=== PATIENT | female | born 1940 | race African-American/Black ===

== ENCOUNTER 2023-07-18 12:45 | Emergency (ER) | payer OTHER ==
[2023-07-18 13:24] VITALS: RESP 18; TEMP 98.3; BMI 60.5
[2023-07-18 14:29] LABS: BASO % 0.6 % (0-2.0); HEMATOCRIT 36.8 % (32.4-45.2); HEMOGLOBIN 12.3 GM/dL (10.7-15.3); LYMPH % 24.9 % (8-40); MCH 29.5 pg (25.7-33.7); MCHC 33.3 g/dl (32.0-36.0); MEAN CELL VOLUME 88.4 fl (80-96); MEAN PLT VOLUME 9.2 fl (7.5-11.1); MONO % 5.8 % (3.8-10.2); NEUT % 66.7 % (42.8-82.8); PLATELET COUNT 320 10^3/uL (134-434); RBC 4.16 M/mm3 (3.60-5.2); RDW 15.1 % (11.6-15.6); WHITE BLOOD COUNT 7.8 K/mm3 (4.0-10.0)
[2023-07-18 14:31] LABS: VENOUS BASE EXCESS 3.5 mmol/L (-2-2); VENOUS O2 SATURATION 38.7 % (70-80); VENOUS PH 7.388 (7.310-7.410)
[2023-07-18 14:48] LABS: POTASSIUM 4.8 mmol/L (3.5-5.1)
[2023-07-18 14:50] LABS: CALCIUM 11.9 mg/dL (8.5-10.1)
[2023-07-18 14:51] LABS: BLOOD UREA NITROGEN 17.9 mg/dL (7-18)
[2023-07-18 14:53] LABS: CREATININE 0.8 mg/dL (0.55-1.3)
[2023-07-18 14:55] LABS: BILIRUBIN,TOTAL 0.4 mg/dL (0.2-1)
[2023-07-18 15:04] LABS: INR 1.35 (0.83-1.09); PROTHROMBIN TIME (PATIENT) 15.6 SEC (9.7-13.0)
[2023-07-18 15:10] LABS: EPI CELLS >36 /uL (0-25.1); HYALINE CASTS 23 /uL (0-3.1); PH,URINE 7.5 (5.0-8.0); URINE APPEARANCE TURBID; URINE BACTERIA 6123 /uL (0-1359); URINE BILIRUBIN NEGATIVE (NEGATIVE); URINE COLOR YELLOW; URINE GLUCOSE (UA) NEGATIVE (NEGATIVE); URINE KETONE NEGATIVE (NEGATIVE); URINE LEUK ESTERASE 3+ (NEGATIVE); URINE NITRITE NEGATIVE (NEGATIVE); URINE PROTEIN NEGATIVE (NEGATIVE); URINE UROBILINOGEN 0.2 mg/dL (0.2-1.0); URINE WBC 1437 /uL (0-25.8)
[2023-07-18 15:46] LABS: URINE RBC 133.2 /uL (0-23.9)
[2023-07-18 15:52] LABS: URINE CRYSTALS PRESENT /hpf
[2023-07-18 15:54] LABS: YEAST NONE SEEN (NEGATIVE)
[2023-07-18] MEDS ORDERED: CEFTRIAXONE 1 GM/50 ML BAG ONE (16:03)
[2023-07-18] MEDS: CEFTRIAXONE 1 GM in DEXTROSE 5%-WATER - 50 ML IVPB ONE (16:06)
[2023-07-18 18:15] LABS: RETICULOCYTES 1.41 % (0.5-1.5)
[2023-07-18 23:21] VITALS: BP 132/74; PULSE 76
== END 2023-07-19 00:11 ==
LOC: JER 12:45
DX: R41.82 Altered mental status, unspecified (principal); J44.9 Chronic obstructive pulmonary disease, unspecified; N39.0 Urinary tract infection, site not specified; R53.1 Weakness; Z20.822 Contact with and (suspected) exposure to COVID-19
CPT/HCPCS: 0241U-QW; 36415; 70450-TC; 71045-TC-FY; 80053; 81003; 82607; 82746; 82803; 83605; 84443; 84484; 85025; 85045; 85610; 85730; 87040; 87086; 87186; 93005; 93010; 99285-25

== ENCOUNTER 2024-01-17 19:42 | Inpatient (IN) | payer OTHER ==
[2024-01-17 20:59] LABS: BASO % 0.6 % (0-2.0); EOS % 1.5 % (0-4.5); HEMATOCRIT 27.9 % (32.4-45.2); LYMPH % 28.9 % (8-40); MCH 28.5 pg (25.7-33.7); MCHC 32.3 g/dl (32.0-36.0); MEAN CELL VOLUME 88.2 fl (80-96); MEAN PLT VOLUME 8.6 fl (7.5-11.1); MONO % 8.6 % (3.8-10.2); NEUT % 60.4 % (42.8-82.8); PLATELET COUNT 180 10^3/uL (134-434); RBC 3.16 M/mm3 (3.60-5.2); RDW 15.4 % (11.6-15.6); WHITE BLOOD COUNT 5.4 K/mm3 (4.0-10.0)
[2024-01-17 21:19] LABS: INR 1.11 (0.83-1.09); PROTHROMBIN TIME (PATIENT) 12.7 SEC (9.7-13.0)
[2024-01-17 21:21] LABS: ACTIVATED PTT 29.5 SECONDS (25.2-36.5)
[2024-01-17 21:26] LABS: POTASSIUM 5.3 mmol/L (3.5-5.1)
[2024-01-17 21:28] LABS: CALCIUM 9.3 mg/dL (8.5-10.1)
[2024-01-17 21:29] LABS: ALBUMIN 3.4 g/dl (3.4-5.0); BLOOD UREA NITROGEN 48.6 mg/dL (7-18)
[2024-01-17 21:32] LABS: CREATININE 2.4 mg/dL (0.55-1.3)
[2024-01-17 21:33] LABS: BILIRUBIN,TOTAL 0.2 mg/dL (0.2-1)
[2024-01-17 21:34] LABS: TOT PROT 7.3 g/dl (6.4-8.2)
[2024-01-17] MEDS: ACETAMINOPHEN 1000 MG/100 ML BAG IVPB ONE (21:35)
[2024-01-17] MEDS: LACTATED RINGERS SOLUTION 1,000 ML/1,000 ML INFUS.BAG IV SCH (22:11)
[2024-01-17 22:46] LABS: EPI CELLS 9 /uL (0-25.1); HYALINE CASTS 0 /uL (0-3.1); PH,URINE 6.5 (5.0-8.0); URINE APPEARANCE CLEAR; URINE BACTERIA >9,000 /uL (0-1359); URINE BILIRUBIN NEGATIVE (NEGATIVE); URINE COLOR YELLOW; URINE GLUCOSE (UA) 1+ (NEGATIVE); URINE KETONE NEGATIVE (NEGATIVE); URINE LEUK ESTERASE 1+ (NEGATIVE); URINE NITRITE NEGATIVE (NEGATIVE); URINE PROTEIN TRACE (NEGATIVE); URINE RBC 5 /uL (0-23.9); URINE UROBILINOGEN 0.2 mg/dL (0.2-1.0); URINE WBC 47 /uL (0-25.8)
[2024-01-17 22:58] LABS: POTASSIUM 5.4 mmol/L (3.5-5.1)
[2024-01-17 23:00] LABS: BLOOD UREA NITROGEN 48.4 mg/dL (7-18); CALCIUM 9.2 mg/dL (8.5-10.1)
[2024-01-17 23:04] LABS: CREATININE 2.2 mg/dL (0.55-1.3)
[2024-01-17] MEDS ORDERED: CEFTRIAXONE 1 GM/50 ML BAG ONE (23:56)
[2024-01-18 01:09] LABS: POTASSIUM 4.7 mmol/L (3.5-5.1)
[2024-01-18 01:10] LABS: CALCIUM 9.2 mg/dL (8.5-10.1)
[2024-01-18 01:11] LABS: BLOOD UREA NITROGEN 49.6 mg/dL (7-18)
[2024-01-18 01:14] LABS: CREATININE 2.3 mg/dL (0.55-1.3)
[2024-01-18 03:18] VITALS: BMI 28.0
[2024-01-18] MEDS: SODIUM CHLORIDE 1,000 ML IV SCH (05:12)
[2024-01-18] MEDS: LINEZOLID 600 MG PREMIX BAG 600 MG/300 ML BAG IVPB SCH (05:19)
[2024-01-18] MEDS: HEPARIN NA (PORCINE) 5,000 UNITS/ML 1ML VIAL SQ SCH (05:19)
[2024-01-18] MEDS: INSULIN ASPART SLIDING SCALE (NOVOLOG) 1 VIAL SQ SCH (06:22)
[2024-01-18] MEDS ORDERED: CHOLECALCIFEROL 50000 UNIT PO SCH (07:00)
[2024-01-18 07:53] LABS: BASO % 0.4 % (0-2.0); EOS % 1.8 % (0-4.5); HEMOGLOBIN 8.8 GM/dL (10.7-15.3); LYMPH % 16.5 % (8-40); MCH 29.2 pg (25.7-33.7); MCHC 32.6 g/dl (32.0-36.0); MEAN CELL VOLUME 89.3 fl (80-96); MEAN PLT VOLUME 9.3 fl (7.5-11.1); MONO % 5.1 % (3.8-10.2); NEUT % 76.2 % (42.8-82.8); PLATELET COUNT 165 10^3/uL (134-434); RBC 3.02 M/mm3 (3.60-5.2); RDW 15.2 % (11.6-15.6); WHITE BLOOD COUNT 6.1 K/mm3 (4.0-10.0)
[2024-01-18 08:10] LABS: POTASSIUM 4.4 mmol/L (3.5-5.1)
[2024-01-18 08:19] LABS: CALCIUM 9.2 mg/dL (8.5-10.1); MAGNESIUM 1.9 mg/dL (1.8-2.4)
[2024-01-18 08:20] LABS: ALBUMIN 3.2 g/dl (3.4-5.0); BILIRUBIN,TOTAL 0.3 mg/dL (0.2-1); BLOOD UREA NITROGEN 48.3 mg/dL (7-18)
[2024-01-18 08:21] LABS: CREATININE 2.2 mg/dL (0.55-1.3); PHOSPHOROUS 3.9 mg/dL (2.5-4.9)
[2024-01-18] MEDS: LACTOBACILLUS ACIDOPHILUS 1 TABLET PO SCH (09:59)
[2024-01-18] MEDS: ATORVASTATIN CA 20 MG TABLET (FP) PO SCH (09:59)
[2024-01-18] MEDS: LEVOTHYROXINE NA 25 MCG TABLET (FP) PO SCH (09:59)
[2024-01-18] MEDS: VALSARTAN 80 MG TABLET PO SCH (10:00)
[2024-01-18] MEDS: amLODIPine BESYLATE 10 MG TABLET (FP) PO SCH (10:00)
[2024-01-18] MEDS: ISOSORBIDE DINITRATE 10 MG TABLET PO SCH (10:00)
[2024-01-18] MEDS: ASCORBIC ACID 500 MG TABLET (FP) PO SCH (10:00)
[2024-01-18] MEDS: METOPROLOL TARTRATE 50 MG TABLET (FP) PO SCH (10:01)
[2024-01-18] MEDS: prednisoLONE ACETATE 1% OPHTH SUSP 5 ML BOTTLE OD SCH (10:02)
[2024-01-18] MEDS: FENOFIBRIC ACID 135 MG CAP PO SCH (10:02)
[2024-01-18] MEDS: GABAPENTIN 300 MG CAPSULE PO SCH (14:43)
[2024-01-18] MEDS: TOPIRAMATE 25 MG TABLET PO SCH (21:31)
[2024-01-18] MEDS: CEFTRIAXONE 1 GM in DEXTROSE 5%-WATER - 50 ML IVPB SCH (22:25)
[2024-01-19 09:35] LABS: BASO % 0.5 % (0-2.0); EOS % 2.3 % (0-4.5); HEMATOCRIT 26.4 % (32.4-45.2); HEMOGLOBIN 8.7 GM/dL (10.7-15.3); LYMPH % 22.5 % (8-40); MCH 29.1 pg (25.7-33.7); MCHC 32.8 g/dl (32.0-36.0); MEAN CELL VOLUME 88.8 fl (80-96); MEAN PLT VOLUME 9.3 fl (7.5-11.1); MONO % 8.3 % (3.8-10.2); NEUT % 66.4 % (42.8-82.8); PLATELET COUNT 145 10^3/uL (134-434); RBC 2.97 M/mm3 (3.60-5.2); RDW 14.8 % (11.6-15.6); WHITE BLOOD COUNT 5.1 K/mm3 (4.0-10.0)
[2024-01-19 09:51] LABS: POTASSIUM 4.5 mmol/L (3.5-5.1)
[2024-01-19 09:56] LABS: BLOOD UREA NITROGEN 44.4 mg/dL (7-18)
[2024-01-19 09:57] LABS: CALCIUM 9.5 mg/dL (8.5-10.1)
[2024-01-19 10:00] LABS: CREATININE 2.2 mg/dL (0.55-1.3)
[2024-01-19] MEDS ORDERED: MAGNESIUM HYDROX 2400MG/30ML ORAL SUSPENSION 30 ML CUP PO ONE (10:00)
[2024-01-19] MEDS: MAGNESIUM HYDROX 2400MG/30ML ORAL SUSPENSION 30 ML CUP PO ONE (14:53)
[2024-01-19] MEDS: MEROPENEM 500 MG in DEXTROSE 5%-WATER 100 ML IVPB SCH (18:05)
[2024-01-20 08:20] LABS: BASO % 0.3 % (0-2.0); EOS % 1.9 % (0-4.5); HEMATOCRIT 26.2 % (32.4-45.2); HEMOGLOBIN 8.5 GM/dL (10.7-15.3); LYMPH % 25.8 % (8-40); MCH 28.7 pg (25.7-33.7); MCHC 32.2 g/dl (32.0-36.0); MEAN PLT VOLUME 9.9 fl (7.5-11.1); PLATELET COUNT 152 10^3/uL (134-434); RBC 2.95 M/mm3 (3.60-5.2); RDW 15.6 % (11.6-15.6); WHITE BLOOD COUNT 6.7 K/mm3 (4.0-10.0)
[2024-01-20 08:24] LABS: POTASSIUM 5.4 mmol/L (3.5-5.1)
[2024-01-20 08:27] LABS: CALCIUM 9.7 mg/dL (8.5-10.1)
[2024-01-20 08:28] LABS: BLOOD UREA NITROGEN 48.6 mg/dL (7-18)
[2024-01-20 08:32] LABS: CREATININE 2.5 mg/dL (0.55-1.3)
[2024-01-20] MEDS: LINEZOLID 600 MG PREMIX BAG 600 MG/300 ML BAG IVPB SCH (08:38)
[2024-01-20 19:55] VITALS: BP 130/61; PULSE 80; RESP 20; TEMP 97.2
== END 2024-01-20 19:57 | DRG 690 ==
LOC: JER 19:42 → JERBED 21:56 → J4S 01-18 02:42 → OBSVTOIN 01-20 10:26
PROVIDERS: ADMIT Internal Medicine; ATTEND Nurse Practitioner
DX: N39.0 Urinary tract infection, site not specified (principal); N17.9 Acute kidney failure, unspecified; B96.20 Unspecified Escherichia coli [E. coli] as the cause of diseases classified elsewhere; E78.5 Hyperlipidemia, unspecified; D63.1 Anemia in chronic kidney disease; E11.22 Type 2 diabetes mellitus with diabetic chronic kidney disease; I12.9 Hypertensive chronic kidney disease with stage 1 through stage 4 chronic kidney disease, or unspecified chronic kidney disease; N18.9 Chronic kidney disease, unspecified; E87.5 Hyperkalemia; E03.9 Hypothyroidism, unspecified; E11.65 Type 2 diabetes mellitus with hyperglycemia; H54.40 Blindness, one eye, unspecified eye; H40.9 Unspecified glaucoma; R55 Syncope and collapse; S70.01XA Contusion of right hip, initial encounter; R29.6 Repeated falls; W18.30XA Fall on same level, unspecified, initial encounter; Y92.122 Bedroom in nursing home as the place of occurrence of the external cause; Y99.9 Unspecified external cause status
CPT/HCPCS: 0241U-QW; 36415; 70450-TC; 71045-TC-FY; 72125-TC; 73521-TC-FY; 76775-TC; 80048; 80053; 81003; 82550; 82570; 82607; 82728; 82746; 82962; 83036; 83540; 83550; 83735; 84100; 84156; 84466; 84484; 85025; 85045; 85610; 85730; 87086; 87186; 93005; 93010; 95816; 97116-GP; 97161-GP; 99285-25; G0378; J1644

== ENCOUNTER 2024-02-08 15:08 | Inpatient (IN) | payer OTHER ==
[2024-02-08 15:31] VITALS: BMI 27.3
[2024-02-08] MEDS: SODIUM CHLORIDE 0.9% 1000 ML INFUS.BAG IV STA (16:19)
[2024-02-08] MEDS ORDERED: PIPERACILLIN/TAZOB 4.5 GM 4.5 GM/100 ML BAG IVPB ONE (16:51)
[2024-02-08] MEDS: PIPERACILLIN/TAZOB 4.5 GM 4.5 GM in DEXTROSE 5%-WATER 100 ML IVPB ONE (16:54)
[2024-02-08 16:57] LABS: BASO % 0.2 % (0-2.0); HEMATOCRIT 26.2 % (32.4-45.2); HEMOGLOBIN 8.5 GM/dL (10.7-15.3); LYMPH % 4.4 % (8-40); MCH 28.6 pg (25.7-33.7); MCHC 32.5 g/dl (32.0-36.0); MEAN CELL VOLUME 87.9 fl (80-96); MEAN PLT VOLUME 9.5 fl (7.5-11.1); MONO % 7.6 % (3.8-10.2); NEUT % 87.8 % (42.8-82.8); PLATELET COUNT 166 10^3/uL (134-434); RBC 2.97 M/mm3 (3.60-5.2); RDW 14.8 % (11.6-15.6); WHITE BLOOD COUNT 10.4 K/mm3 (4.0-10.0)
[2024-02-08 17:02] LABS: INR 1.41 (0.83-1.09); PROTHROMBIN TIME (PATIENT) 16.1 SEC (9.7-13.0)
[2024-02-08 17:05] LABS: EPI CELLS 17 /uL (0-25.1); HYALINE CASTS 2 /uL (0-3.1); PH,URINE 5.5 (5.0-8.0); URINE APPEARANCE CLOUDY; URINE BACTERIA 6151 /uL (0-1359); URINE BILIRUBIN NEGATIVE (NEGATIVE); URINE COLOR YELLOW; URINE GLUCOSE (UA) 3+ (NEGATIVE); URINE KETONE TRACE (NEGATIVE); URINE LEUK ESTERASE 2+ (NEGATIVE); URINE NITRITE NEGATIVE (NEGATIVE); URINE PROTEIN 2+ (NEGATIVE); URINE RBC 17 /uL (0-23.9); URINE UROBILINOGEN 0.2 mg/dL (0.2-1.0); URINE WBC 889 /uL (0-25.8)
[2024-02-08 17:08] LABS: VENOUS PH 7.333 (7.310-7.410)
[2024-02-08 17:11] LABS: CHLORIDE 113 mmol/L (98-107); POTASSIUM 4.3 mmol/L (3.5-5.1); SODIUM 138 mmol/L (136-145)
[2024-02-08 17:15] LABS: CALCIUM 9.5 mg/dL (8.5-10.1)
[2024-02-08 17:16] LABS: ALBUMIN 2.5 g/dl (3.4-5.0); ANION GAP 9 mmol/L (4-13); BLOOD UREA NITROGEN 50.4 mg/dL (7-18); CO2 17 mmol/L (21-32); MAGNESIUM 1.7 mg/dL (1.8-2.4)
[2024-02-08 17:19] LABS: CREATININE 3.4 mg/dL (0.55-1.3); SGOT/AST 23 U/L (15-37); SGPT/ALT 16 U/L (13-61)
[2024-02-08 17:20] LABS: BILIRUBIN,TOTAL 0.5 mg/dL (0.2-1)
[2024-02-08 17:21] LABS: TOT PROT 6.6 g/dl (6.4-8.2)
[2024-02-08 17:22] LABS: ALK PHOS 67 U/L (45-117)
[2024-02-08 17:34] LABS: GLUCOSE,RANDOM 598 mg/dL (74-106)
[2024-02-08] MEDS ORDERED: VANCOMYCIN/WATER 1250 MG 1,250 MG/250 ML BAG IVPB ONE (17:41)
[2024-02-08] MEDS: VANCOMYCIN/WATER 1250 MG 1,250 MG/250 ML BAG IVPB ONE (17:42)
[2024-02-08 18:20] LABS: HIV INTERPRETATION NEGATIVE (NEGATIVE)
[2024-02-08] MEDS: INSULIN REGULAR HUMAN 100 UNITS/ML *VIAL IVPUSH ONE (18:46)
[2024-02-08] MEDS ORDERED: MAGNESIUM 1GM/D5W - 1 GM/100 ML IVPB IVPB ONE (18:49)
[2024-02-08] MEDS ORDERED: MEROPENEM 1 GM VIAL (RESTRICTED TO ID) IVPB ONE (18:49)
[2024-02-08] MEDS: MAGNESIUM 1GM/D5W - 1 GM/100 ML IVPB IVPB ONE (18:53)
[2024-02-08] MEDS: MEROPENEM 1 GM in DEXTROSE 5%-WATER 100 ML IVPB SCH (19:28)
[2024-02-08] MEDS ORDERED: INSULIN ASPART SLIDING SCALE (NOVOLOG) 1 VIAL SQ ONE ×2 (19:50→19:52)
[2024-02-08] MEDS: INSULIN ASPART SLIDING SCALE (NOVOLOG) 1 VIAL SQ SCH (19:55)
[2024-02-08] MEDS: LACTATED RINGERS SOLUTION 1,000 ML/1,000 ML INFUS.BAG IV SCH ×2 (20:08→20:11)
[2024-02-08] MEDS: METOPROLOL TARTRATE 50 MG TABLET (FP) PO SCH (21:39)
[2024-02-08] MEDS ORDERED: HEPARIN NA (PORCINE) 5,000 UNITS/ML 1ML VIAL ONE (22:03)
[2024-02-08] MEDS ORDERED: GABAPENTIN 300 MG CAPSULE ONE (22:03)
[2024-02-08] MEDS ORDERED: TOPIRAMATE 25 MG TABLET ONE (22:03)
[2024-02-08] MEDS: GABAPENTIN 300 MG CAPSULE PO SCH (22:36)
[2024-02-08] MEDS: HEPARIN NA (PORCINE) 5,000 UNITS/ML 1ML VIAL SQ SCH (22:36)
[2024-02-08] MEDS: TOPIRAMATE 25 MG TABLET PO SCH (22:37)
[2024-02-08] MEDS: LACTOBACILLUS ACIDOPHILUS 1 TABLET PO SCH (23:25)
[2024-02-09] MEDS ORDERED: ACETAMINOPHEN INJECTION 100 ML ONE ×2 (00:33→05:46)
[2024-02-09] MEDS: ACETAMINOPHEN 1000 MG/100 ML BAG IVPB ONE ×2 (00:38→05:55)
[2024-02-09] MEDS ORDERED: MEROPENEM 1 GM VIAL (RESTRICTED TO ID) IVPB ONE ×3 (01:57→17:55)
[2024-02-09] MEDS ORDERED: MEROPENEM 1 GM in DEXTROSE 5%-WATER 100 ML IVPB SCH ×2 (02:00→18:20)
[2024-02-09] MEDS ORDERED: GABAPENTIN 300 MG CAPSULE ONE ×3 (05:57→22:50)
[2024-02-09] MEDS ORDERED: METOPROLOL TARTRATE 50 MG TABLET (FP) ONE (09:24)
[2024-02-09] MEDS ORDERED: LEVOTHYROXINE NA 25 MCG TABLET (FP) ONE (09:24)
[2024-02-09] MEDS ORDERED: HEPARIN NA (PORCINE) 5,000 UNITS/ML 1ML VIAL ONE ×2 (09:25→22:50)
[2024-02-09] MEDS: LEVOTHYROXINE NA 25 MCG TABLET (FP) PO SCH (09:40)
[2024-02-09] MEDS ORDERED: VALSARTAN 80 MG TABLET PO SCH (10:00)
[2024-02-09] MEDS ORDERED: amLODIPine BESYLATE 10 MG TABLET (FP) PO SCH (10:00)
[2024-02-09 10:56] LABS: CHLORIDE 112 mmol/L (98-107); POTASSIUM 4.2 mmol/L (3.5-5.1); SODIUM 139 mmol/L (136-145)
[2024-02-09 10:59] LABS: ANION GAP 11 mmol/L (4-13); BLOOD UREA NITROGEN 49.3 mg/dL (7-18); CALCIUM 9.7 mg/dL (8.5-10.1); CO2 15 mmol/L (21-32)
[2024-02-09 11:00] LABS: GLUCOSE,RANDOM 419 mg/dL (74-106)
[2024-02-09 11:02] LABS: CREATININE 2.8 mg/dL (0.55-1.3)
[2024-02-09 11:08] LABS: BASO % 0.3 % (0-2.0); HEMATOCRIT 30.6 % (32.4-45.2); LYMPH % 5.4 % (8-40); MCH 28.6 pg (25.7-33.7); MCHC 32.7 g/dl (32.0-36.0); MEAN CELL VOLUME 87.5 fl (80-96); MEAN PLT VOLUME 9.6 fl (7.5-11.1); MONO % 4.3 % (3.8-10.2); PLATELET COUNT 158 10^3/uL (134-434); RDW 15.1 % (11.6-15.6); WHITE BLOOD COUNT 10.6 K/mm3 (4.0-10.0)
[2024-02-09] MEDS: FENOFIBRIC ACID 135 MG CAP PO SCH (11:15)
[2024-02-09] MEDS ORDERED: INSULIN (LEVEMIR) 100 UNITS/ML UNITS SQ SCH (11:15)
[2024-02-09] MEDS: ISOSORBIDE DINITRATE 10 MG TABLET PO SCH (11:15)
[2024-02-09] MEDS ORDERED: INSULIN (LEVEMIR) 100 UNITS/ML UNITS SQ ONE ×2 (12:31→22:51)
[2024-02-09] MEDS: INSULIN (LEVEMIR) 100 UNITS/ML UNITS SQ SCH (12:33)
[2024-02-09] MEDS ORDERED: ACETAMINOPHEN 500 MG TABLET (FP) ONE (17:10)
[2024-02-09] MEDS: ACETAMINOPHEN 500 MG TABLET (FP) PO ONE (17:15)
[2024-02-09] MEDS: MEROPENEM 1 GM in DEXTROSE 5%-WATER 100 ML IVPB ONE (18:08)
[2024-02-09] MEDS ORDERED: ATORVASTATIN CA 20 MG TABLET (FP) ONE (22:50)
[2024-02-09] MEDS ORDERED: TOPIRAMATE 25 MG TABLET ONE (22:50)
[2024-02-09] MEDS: ATORVASTATIN CA 20 MG TABLET (FP) PO SCH (23:17)
[2024-02-10] MEDS ORDERED: ACETAMINOPHEN INJECTION 100 ML ONE (04:39)
[2024-02-10] MEDS ORDERED: MEROPENEM 500 MG VIAL (RESTRICTED TO ID) IVPB ONE (05:49)
[2024-02-10] MEDS: ACETAMINOPHEN 1000 MG/100 ML BAG IVPB ONE (05:50)
[2024-02-10] MEDS ORDERED: GABAPENTIN 300 MG CAPSULE ONE (06:04)
[2024-02-10] MEDS: MEROPENEM 500 MG in DEXTROSE 5%-WATER 100 ML IVPB SCH (06:25)
[2024-02-10 07:24] LABS: POTASSIUM 3.7 mmol/L (3.5-5.1)
[2024-02-10 07:32] LABS: CALCIUM 9.7 mg/dL (8.5-10.1)
[2024-02-10 07:33] LABS: BLOOD UREA NITROGEN 47.7 mg/dL (7-18)
[2024-02-10 07:34] LABS: ALBUMIN 1.9 g/dl (3.4-5.0)
[2024-02-10 07:36] LABS: CREATININE 2.3 mg/dL (0.55-1.3)
[2024-02-10 07:37] LABS: BILIRUBIN,TOTAL 0.5 mg/dL (0.2-1); TOT PROT 5.7 g/dl (6.4-8.2)
[2024-02-10 07:40] LABS: BASO % 0.5 % (0-2.0); HEMATOCRIT 27.8 % (32.4-45.2); HEMOGLOBIN 9.1 GM/dL (10.7-15.3); LYMPH % 7.6 % (8-40); MCH 28.5 pg (25.7-33.7); MCHC 32.7 g/dl (32.0-36.0); MEAN CELL VOLUME 87.3 fl (80-96); MEAN PLT VOLUME 10.4 fl (7.5-11.1); MONO % 5.5 % (3.8-10.2); NEUT % 86.4 % (42.8-82.8); PLATELET COUNT 149 10^3/uL (134-434); RBC 3.18 M/mm3 (3.60-5.2); RDW 15.7 % (11.6-15.6)
[2024-02-10] MEDS ORDERED: SULFAMETHOXAZOLE/TRIMETHOPRIM 800MG/160MG D.S. TABLET ONE (09:42)
[2024-02-10] MEDS ORDERED: HEPARIN NA (PORCINE) 5,000 UNITS/ML 1ML VIAL ONE (09:42)
[2024-02-10] MEDS ORDERED: LEVOTHYROXINE NA 25 MCG TABLET (FP) ONE (09:42)
[2024-02-10] MEDS ORDERED: VANCOMYCIN 1 GRAM (PRE-DOCKED) 1,000 MG/250 ML BAG IVPB ONE (11:25)
[2024-02-10] MEDS: VANCOMYCIN/WATER FOR INJ (PEG) 1,000 MG/200 ML BAG IVPB SCH (12:23)
[2024-02-10] MEDS: LACTATED RINGERS SOLUTION 1,000 ML/1,000 ML INFUS.BAG IV SCH (15:01)
[2024-02-11 11:17] LABS: HEMATOCRIT 26.2 % (32.4-45.2); HEMOGLOBIN 8.4 GM/dL (10.7-15.3); MCH 27.7 pg (25.7-33.7); MEAN CELL VOLUME 86.8 fl (80-96); PLATELET COUNT 143 10^3/uL (134-434); RBC 3.02 M/mm3 (3.60-5.2); WHITE BLOOD COUNT 11.9 K/mm3 (4.0-10.0)
[2024-02-11 11:53] LABS: POTASSIUM 3.7 mmol/L (3.5-5.1)
[2024-02-11 11:58] LABS: ALBUMIN 1.8 g/dl (3.4-5.0); BLOOD UREA NITROGEN 45.4 mg/dL (7-18); CALCIUM 9.8 mg/dL (8.5-10.1); MAGNESIUM 1.6 mg/dL (1.8-2.4)
[2024-02-11 12:02] LABS: CREATININE 2.2 mg/dL (0.55-1.3)
[2024-02-11 12:03] LABS: BILIRUBIN,TOTAL 0.4 mg/dL (0.2-1); TOT PROT 5.5 g/dl (6.4-8.2)
[2024-02-11 13:10] LABS: PLATELET ESTIMATE ADEQUATE
[2024-02-11] MEDS: MAGNESIUM SULFATE IN WATER 2 GM/50 ML IVPB IVPB ONE (14:10)
[2024-02-11] MEDS: CEFTRIAXONE 1 GM in DEXTROSE 5%-WATER - 50 ML IVPB SCH (14:10)
[2024-02-11] MEDS: BACITRACIN ZINC 15 GM TUBE TOPICAL OINTMENT TP SCH (17:13)
[2024-02-11] MEDS: VANCOMYCIN 1,000 MG in DEXTROSE 5%-WATER - 250 ML IVPB SCH (18:20)
[2024-02-11] MEDS: MINERAL OIL/PET HY-PHL TOPICAL OINTMENT 454 GM JAR TP SCH (21:51)
[2024-02-12 10:04] LABS: HEMATOCRIT 25.8 % (32.4-45.2); HEMOGLOBIN 8.3 GM/dL (10.7-15.3); MCH 27.5 pg (25.7-33.7); MEAN CELL VOLUME 85.8 fl (80-96); MEAN PLT VOLUME 10.1 fl (7.5-11.1); PLATELET COUNT 156 10^3/uL (134-434); RDW 14.9 % (11.6-15.6)
[2024-02-12 10:40] LABS: POTASSIUM 4.6 mmol/L (3.5-5.1)
[2024-02-12 10:54] LABS: CALCIUM 9.7 mg/dL (8.5-10.1)
[2024-02-12 10:55] LABS: ALBUMIN 1.8 g/dl (3.4-5.0); BLOOD UREA NITROGEN 46.9 mg/dL (7-18); MAGNESIUM 2.4 mg/dL (1.8-2.4)
[2024-02-12 10:58] LABS: CREATININE 2.3 mg/dL (0.55-1.3)
[2024-02-12 10:59] LABS: BILIRUBIN,TOTAL 0.4 mg/dL (0.2-1)
[2024-02-12 11:00] LABS: TOT PROT 5.7 g/dl (6.4-8.2)
[2024-02-12] MEDS: AMINO ACIDS/PROTEIN HYDROLYS 30 ML LIQUID.PKT PO SCH (11:33)
[2024-02-12] MEDS: MULTIVITAMINS (DAILY MVI) TABLET (FP) PO SCH (11:35)
[2024-02-12 11:46] LABS: ANISOCYTOSIS 0; MACROCYTOSIS 0
[2024-02-12] MEDS: VANCOMYCIN/WATER FOR INJ (PEG) 1,000 MG/200 ML BAG IVPB SCH (12:21)
[2024-02-12] MEDS: ACETAMINOPHEN 325 MG TABLET (FP) PO PRN (22:06)
[2024-02-13] MEDS: INSULIN (LEVEMIR) 100 UNITS/ML UNITS SQ SCH (06:18)
[2024-02-13 09:14] LABS: HEMATOCRIT 25.7 % (32.4-45.2); HEMOGLOBIN 8.1 GM/dL (10.7-15.3); MCH 27.2 pg (25.7-33.7); MCHC 31.4 g/dl (32.0-36.0); MEAN CELL VOLUME 86.6 fl (80-96); MEAN PLT VOLUME 10.2 fl (7.5-11.1); PLATELET COUNT 177 10^3/uL (134-434); RBC 2.97 M/mm3 (3.60-5.2); RDW 15.3 % (11.6-15.6); WHITE BLOOD COUNT 12.2 K/mm3 (4.0-10.0)
[2024-02-13 09:31] LABS: POTASSIUM 4.2 mmol/L (3.5-5.1)
[2024-02-13 09:39] LABS: ALBUMIN 1.8 g/dl (3.4-5.0); BLOOD UREA NITROGEN 46.4 mg/dL (7-18); CALCIUM 9.2 mg/dL (8.5-10.1); MAGNESIUM 2.2 mg/dL (1.8-2.4)
[2024-02-13 09:42] LABS: CREATININE 2.1 mg/dL (0.55-1.3)
[2024-02-13 09:43] LABS: ANISOCYTOSIS 0; MACROCYTOSIS 0
[2024-02-13 09:44] LABS: BILIRUBIN,TOTAL 0.3 mg/dL (0.2-1); TOT PROT 5.7 g/dl (6.4-8.2)
[2024-02-13] MEDS ORDERED: INSULIN ASPART SLIDING SCALE (NOVOLOG) 1 VIAL SQ ONE (12:05)
[2024-02-14] MEDS ORDERED: INSULIN ASPART SLIDING SCALE (NOVOLOG) 1 VIAL SQ ONE ×2 (07:56→20:11)
[2024-02-14 09:36] LABS: BASO % 0.3 % (0-2.0); EOS % 0.6 % (0-4.5); HEMATOCRIT 17.8 % (32.4-45.2); LYMPH % 7.4 % (8-40); MCH 27.4 pg (25.7-33.7); MCHC 30.9 g/dl (32.0-36.0); MEAN CELL VOLUME 88.8 fl (80-96); NEUT % 85.7 % (42.8-82.8); PLATELET COUNT 125 10^3/uL (134-434); RBC 2.01 M/mm3 (3.60-5.2); RDW 15.2 % (11.6-15.6)
[2024-02-14 09:43] LABS: HEMOGLOBIN 5.5 GM/dL (10.7-15.3)
[2024-02-14 09:57] LABS: POTASSIUM 4.1 mmol/L (3.5-5.1)
[2024-02-14 10:03] LABS: BLOOD UREA NITROGEN 31.3 mg/dL (7-18); CALCIUM 8.1 mg/dL (8.5-10.1); MAGNESIUM 1.3 mg/dL (1.8-2.4)
[2024-02-14 10:06] LABS: CREATININE 1.1 mg/dL (0.55-1.3)
[2024-02-14 10:07] LABS: BILIRUBIN,TOTAL 0.2 mg/dL (0.2-1)
[2024-02-14 10:17] LABS: TOT PROT 3.2 g/dl (6.4-8.2)
[2024-02-14 11:20] LABS: ANISOCYTOSIS 0; MACROCYTOSIS 0
[2024-02-14 11:39] LABS: BASO % 0.2 % (0-2.0); EOS % 0.4 % (0-4.5); HEMATOCRIT 25.1 % (32.4-45.2); LYMPH % 7.5 % (8-40); MCH 27.1 pg (25.7-33.7); MCHC 31.9 g/dl (32.0-36.0); MEAN CELL VOLUME 84.9 fl (80-96); MEAN PLT VOLUME 9.7 fl (7.5-11.1); MONO % 4.6 % (3.8-10.2); NEUT % 87.3 % (42.8-82.8); PLATELET COUNT 194 10^3/uL (134-434); RBC 2.96 M/mm3 (3.60-5.2); RDW 14.9 % (11.6-15.6); WHITE BLOOD COUNT 11.6 K/mm3 (4.0-10.0)
[2024-02-14 12:20] LABS: ANISOCYTOSIS 1+; MACROCYTOSIS 0; TARGET CELLS 1+
[2024-02-14] MEDS: SODIUM BICARBONATE 650 MG TABLET PO SCH (16:17)
[2024-02-14] MEDS: MAGNESIUM OXIDE 400 MG TABLET (FP) PO SCH (16:35)
[2024-02-14] MEDS: MAGNESIUM SULFATE IN WATER 2 GM/50 ML IVPB IVPB ONE (20:12)
[2024-02-15 10:10] LABS: HEMATOCRIT 25.8 % (32.4-45.2); HEMOGLOBIN 8.1 GM/dL (10.7-15.3); MCH 27.3 pg (25.7-33.7); MCHC 31.6 g/dl (32.0-36.0); MEAN CELL VOLUME 86.3 fl (80-96); MEAN PLT VOLUME 9.9 fl (7.5-11.1); PLATELET COUNT 205 10^3/uL (134-434); RBC 2.98 M/mm3 (3.60-5.2); RDW 15.3 % (11.6-15.6); WHITE BLOOD COUNT 13.3 K/mm3 (4.0-10.0)
[2024-02-15 10:52] LABS: BILIRUBIN,TOTAL 0.3 mg/dL (0.2-1)
[2024-02-15 10:56] LABS: ALBUMIN 1.8 g/dl (3.4-5.0); CALCIUM 9.4 mg/dL (8.5-10.1); MAGNESIUM 2.3 mg/dL (1.8-2.4)
[2024-02-15 10:57] LABS: CREATININE 1.7 mg/dL (0.55-1.3)
[2024-02-15 10:59] LABS: BLOOD UREA NITROGEN 38.2 mg/dL (7-18)
[2024-02-15 11:19] LABS: PLATELET ESTIMATE ADEQUATE
[2024-02-15 11:22] LABS: TOT PROT 6.2 g/dl (6.4-8.2)
[2024-02-15] MEDS: DAPTOMYCIN 600 MG in SODIUM CHLORIDE 50 ML IVPB SCH (14:36)
[2024-02-16] MEDS: INSULIN (LEVEMIR) 100 UNITS/ML UNITS SQ SCH (07:25)
[2024-02-16 10:23] LABS: HEMATOCRIT 24.2 % (32.4-45.2); HEMOGLOBIN 7.5 GM/dL (10.7-15.3); MCH 27.3 pg (25.7-33.7); MCHC 31.2 g/dl (32.0-36.0); MEAN CELL VOLUME 87.7 fl (80-96); MEAN PLT VOLUME 9.9 fl (7.5-11.1); PLATELET COUNT 235 10^3/uL (134-434); RBC 2.76 M/mm3 (3.60-5.2); RDW 15.1 % (11.6-15.6); WHITE BLOOD COUNT 14.1 K/mm3 (4.0-10.0)
[2024-02-16 10:43] LABS: CALCIUM 9.4 mg/dL (8.5-10.1)
[2024-02-16 10:44] LABS: ALBUMIN 1.8 g/dl (3.4-5.0); BLOOD UREA NITROGEN 39.6 mg/dL (7-18); MAGNESIUM 1.9 mg/dL (1.8-2.4)
[2024-02-16 10:47] LABS: CREATININE 1.7 mg/dL (0.55-1.3)
[2024-02-16 10:48] LABS: BILIRUBIN,TOTAL 0.3 mg/dL (0.2-1); TOT PROT 6.2 g/dl (6.4-8.2)
[2024-02-16 10:53] LABS: ANISOCYTOSIS 0; MACROCYTOSIS 0
[2024-02-16] MEDS: ACETAMINOPHEN 325 MG TABLET (FP) PO PRN (11:24)
[2024-02-16] MEDS: SODIUM CHLORIDE 1,000 ML IV STA (13:55)
[2024-02-17 12:00] LABS: HEMATOCRIT 27.5 % (32.4-45.2); HEMOGLOBIN 8.7 GM/dL (10.7-15.3); MCH 27.2 pg (25.7-33.7); MCHC 31.5 g/dl (32.0-36.0); MEAN CELL VOLUME 86.4 fl (80-96); MEAN PLT VOLUME 9.4 fl (7.5-11.1); PLATELET COUNT 252 10^3/uL (134-434); RBC 3.18 M/mm3 (3.60-5.2); RDW 15.5 % (11.6-15.6); WHITE BLOOD COUNT 13.5 K/mm3 (4.0-10.0)
[2024-02-17 12:23] LABS: POTASSIUM 4.4 mmol/L (3.5-5.1)
[2024-02-17 12:26] LABS: ANISOCYTOSIS 0; MACROCYTOSIS 0
[2024-02-17 13:07] LABS: CALCIUM 10.1 mg/dL (8.5-10.1)
[2024-02-17 13:08] LABS: MAGNESIUM 2.1 mg/dL (1.8-2.4)
[2024-02-17 13:09] LABS: BLOOD UREA NITROGEN 39.4 mg/dL (7-18)
[2024-02-17 13:13] LABS: CREATININE 1.7 mg/dL (0.55-1.3)
[2024-02-17 13:14] LABS: BILIRUBIN,TOTAL 0.4 mg/dL (0.2-1)
[2024-02-18 13:32] LABS: BASO % 0.7 % (0-2.0); EOS % 0.1 % (0-4.5); HEMATOCRIT 24.2 % (32.4-45.2); HEMOGLOBIN 7.8 GM/dL (10.7-15.3); LYMPH % 8.5 % (8-40); MCH 27.5 pg (25.7-33.7); MCHC 32.2 g/dl (32.0-36.0); MEAN CELL VOLUME 85.4 fl (80-96); MEAN PLT VOLUME 9.8 fl (7.5-11.1); MONO % 2.9 % (3.8-10.2); NEUT % 87.8 % (42.8-82.8); PLATELET COUNT 235 10^3/uL (134-434); RBC 2.83 M/mm3 (3.60-5.2); RDW 15.6 % (11.6-15.6); WHITE BLOOD COUNT 11.6 K/mm3 (4.0-10.0)
[2024-02-19 11:08] LABS: BASO % 0.6 % (0-2.0); EOS % 0.2 % (0-4.5); HEMOGLOBIN 7.1 GM/dL (10.7-15.3); LYMPH % 13.3 % (8-40); MCH 27.7 pg (25.7-33.7); MCHC 32.5 g/dl (32.0-36.0); MEAN CELL VOLUME 85.2 fl (80-96); MEAN PLT VOLUME 9.7 fl (7.5-11.1); MONO % 3.4 % (3.8-10.2); NEUT % 82.5 % (42.8-82.8); PLATELET COUNT 254 10^3/uL (134-434); RBC 2.58 M/mm3 (3.60-5.2); RDW 15.7 % (11.6-15.6); WHITE BLOOD COUNT 9.7 K/mm3 (4.0-10.0)
[2024-02-19 11:28] LABS: INR 1.43 (0.83-1.09)
[2024-02-19 11:42] LABS: POTASSIUM 4.6 mmol/L (3.5-5.1)
[2024-02-19 11:55] LABS: CALCIUM 9.8 mg/dL (8.5-10.1); IRON SERUM 42 ug/dL (50-175); TOTAL IRON BINDING CAPACITY 172 ug/dL (250-450)
[2024-02-19 11:56] LABS: ALBUMIN 1.9 g/dl (3.4-5.0); BLOOD UREA NITROGEN 39.1 mg/dL (7-18); MAGNESIUM 2.1 mg/dL (1.8-2.4)
[2024-02-19 11:59] LABS: CREATININE 1.7 mg/dL (0.55-1.3)
[2024-02-19 12:00] LABS: BILIRUBIN,TOTAL 0.4 mg/dL (0.2-1); TOT PROT 6.6 g/dl (6.4-8.2)
[2024-02-19] MEDS ORDERED: INSULIN ASPART SLIDING SCALE (NOVOLOG) 1 VIAL SQ ONE (21:17)
[2024-02-20 09:53] LABS: BASO % 0.6 % (0-2.0); EOS % 0.1 % (0-4.5); HEMATOCRIT 23.2 % (32.4-45.2); HEMOGLOBIN 7.3 GM/dL (10.7-15.3); LYMPH % 11.4 % (8-40); MCH 27.2 pg (25.7-33.7); MCHC 31.5 g/dl (32.0-36.0); MEAN CELL VOLUME 86.1 fl (80-96); MEAN PLT VOLUME 9.1 fl (7.5-11.1); MONO % 5.1 % (3.8-10.2); NEUT % 82.8 % (42.8-82.8); PLATELET COUNT 286 10^3/uL (134-434); RDW 15.4 % (11.6-15.6); WHITE BLOOD COUNT 11.6 K/mm3 (4.0-10.0)
[2024-02-20 10:10] LABS: POTASSIUM 4.4 mmol/L (3.5-5.1)
[2024-02-20 10:12] LABS: CALCIUM 9.9 mg/dL (8.5-10.1)
[2024-02-20 10:13] LABS: BLOOD UREA NITROGEN 39.7 mg/dL (7-18); MAGNESIUM 2.2 mg/dL (1.8-2.4)
[2024-02-20 10:16] LABS: CREATININE 1.8 mg/dL (0.55-1.3)
[2024-02-20 10:17] LABS: BILIRUBIN,TOTAL 0.3 mg/dL (0.2-1)
[2024-02-20] MEDS: IRON SUCROSE INJECTION 100 MG in SODIUM CHLORIDE 95 ML IVPB ONE (18:49)
[2024-02-20] MEDS ORDERED: INSULIN ASPART SLIDING SCALE (NOVOLOG) 1 VIAL SQ ONE (20:11)
[2024-02-21 11:25] LABS: BASO % 0.7 % (0-2.0); EOS % 0.1 % (0-4.5); HEMOGLOBIN 8.4 GM/dL (10.7-15.3); LYMPH % 10.5 % (8-40); MCH 27.7 pg (25.7-33.7); MCHC 32.3 g/dl (32.0-36.0); MEAN CELL VOLUME 85.9 fl (80-96); MEAN PLT VOLUME 9.1 fl (7.5-11.1); MONO % 4.9 % (3.8-10.2); NEUT % 83.8 % (42.8-82.8); PLATELET COUNT 259 10^3/uL (134-434); RBC 3.03 M/mm3 (3.60-5.2); RDW 15.6 % (11.6-15.6); WHITE BLOOD COUNT 9.2 K/mm3 (4.0-10.0)
[2024-02-21 11:57] LABS: ALBUMIN 1.9 g/dl (3.4-5.0); BLOOD UREA NITROGEN 39.4 mg/dL (7-18); CALCIUM 9.9 mg/dL (8.5-10.1); MAGNESIUM 2.1 mg/dL (1.8-2.4)
[2024-02-21 12:00] LABS: CREATININE 1.9 mg/dL (0.55-1.3)
[2024-02-21 12:02] LABS: BILIRUBIN,TOTAL 0.4 mg/dL (0.2-1); TOT PROT 6.6 g/dl (6.4-8.2)
[2024-02-21] MEDS: METOPROLOL TARTRATE 50 MG TABLET (FP) PO ONE (12:08)
[2024-02-22] MEDS ORDERED: INSULIN (LEVEMIR) 100 UNITS/ML UNITS SQ ONE (07:46)
[2024-02-22] MEDS ORDERED: INSULIN ASPART SLIDING SCALE (NOVOLOG) 1 VIAL SQ ONE (07:46)
[2024-02-22 08:25] LABS: BASO % 0.7 % (0-2.0); HEMATOCRIT 27.1 % (32.4-45.2); HEMOGLOBIN 8.9 GM/dL (10.7-15.3); LYMPH % 14.9 % (8-40); MCHC 32.8 g/dl (32.0-36.0); MEAN CELL VOLUME 85.4 fl (80-96); MEAN PLT VOLUME 9.1 fl (7.5-11.1); NEUT % 81.4 % (42.8-82.8); PLATELET COUNT 278 10^3/uL (134-434); RBC 3.18 M/mm3 (3.60-5.2); RDW 15.5 % (11.6-15.6); WHITE BLOOD COUNT 10.7 K/mm3 (4.0-10.0)
[2024-02-22 08:38] LABS: POTASSIUM 4.7 mmol/L (3.5-5.1)
[2024-02-22 08:42] LABS: CALCIUM 10.3 mg/dL (8.5-10.1)
[2024-02-22 08:43] LABS: ALBUMIN 2.1 g/dl (3.4-5.0); MAGNESIUM 2.1 mg/dL (1.8-2.4)
[2024-02-22 08:45] LABS: CREATININE 1.9 mg/dL (0.55-1.3)
[2024-02-22 08:47] LABS: BILIRUBIN,TOTAL 0.4 mg/dL (0.2-1); TOT PROT 7.2 g/dl (6.4-8.2)
[2024-02-22] MEDS: INSULIN ASPART SLIDING SCALE (NOVOLOG) 1 VIAL SQ SCH (18:37)
[2024-02-22] MEDS: INSULIN (LEVEMIR) 100 UNITS/ML UNITS SQ SCH (22:33)
[2024-02-23 09:16] LABS: BASO % 0.6 % (0-2.0); EOS % 0.1 % (0-4.5); HEMATOCRIT 28.6 % (32.4-45.2); HEMOGLOBIN 9.1 GM/dL (10.7-15.3); MCH 27.4 pg (25.7-33.7); MEAN CELL VOLUME 85.7 fl (80-96); MEAN PLT VOLUME 8.8 fl (7.5-11.1); NEUT % 80.3 % (42.8-82.8); PLATELET COUNT 304 10^3/uL (134-434); RBC 3.34 M/mm3 (3.60-5.2); RDW 15.4 % (11.6-15.6); WHITE BLOOD COUNT 10.9 K/mm3 (4.0-10.0)
[2024-02-23 09:35] LABS: ALBUMIN 2.2 g/dl (3.4-5.0); CALCIUM 10.3 mg/dL (8.5-10.1)
[2024-02-23 09:36] LABS: BLOOD UREA NITROGEN 38.7 mg/dL (7-18)
[2024-02-23 09:40] LABS: BILIRUBIN,TOTAL 0.7 mg/dL (0.2-1); TOT PROT 7.5 g/dl (6.4-8.2)
[2024-02-24 10:14] LABS: BASO % 0.8 % (0-2.0); HEMATOCRIT 30.3 % (32.4-45.2); HEMOGLOBIN 9.5 GM/dL (10.7-15.3); LYMPH % 18.7 % (8-40); MCH 27.3 pg (25.7-33.7); MCHC 31.2 g/dl (32.0-36.0); MEAN CELL VOLUME 87.6 fl (80-96); MEAN PLT VOLUME 8.8 fl (7.5-11.1); MONO % 6.3 % (3.8-10.2); NEUT % 74.2 % (42.8-82.8); PLATELET COUNT 315 10^3/uL (134-434); RBC 3.46 M/mm3 (3.60-5.2); RDW 15.9 % (11.6-15.6)
[2024-02-24 10:40] LABS: POTASSIUM 4.9 mmol/L (3.5-5.1)
[2024-02-24 10:41] LABS: CALCIUM 10.3 mg/dL (8.5-10.1)
[2024-02-24 10:42] LABS: ALBUMIN 2.1 g/dl (3.4-5.0); BLOOD UREA NITROGEN 44.5 mg/dL (7-18); MAGNESIUM 2.2 mg/dL (1.8-2.4)
[2024-02-24 10:47] LABS: BILIRUBIN,TOTAL 0.4 mg/dL (0.2-1); TOT PROT 7.4 g/dl (6.4-8.2)
[2024-02-24 18:03] VITALS: BP 129/63; PULSE 74; RESP 20; TEMP 98.4
== END 2024-02-24 20:52 | DRG 871 ==
LOC: JER 15:08 → JERBED 16:13 → J8W 02-10 15:57
PROVIDERS: ADMIT Internal Medicine; ATTEND Nurse Practitioner Family
PROC: 0K9P3ZZ Drainage of Left Hip Muscle, Percutaneous Approach (ICD-10-PCS; principal; 2024-02-20)
DX: A41.89 Other specified sepsis (principal); G93.41 Metabolic encephalopathy; L89.153 Pressure ulcer of sacral region, stage 3; K68.12 Psoas muscle abscess; N17.9 Acute kidney failure, unspecified; L97.818 Non-pressure chronic ulcer of other part of right lower leg with other specified severity; L97.828 Non-pressure chronic ulcer of other part of left lower leg with other specified severity; N39.0 Urinary tract infection, site not specified; D64.9 Anemia, unspecified; E03.9 Hypothyroidism, unspecified; E78.5 Hyperlipidemia, unspecified; I10 Essential (primary) hypertension; I83.018 Varicose veins of right lower extremity with ulcer other part of lower leg; I83.028 Varicose veins of left lower extremity with ulcer other part of lower leg; E11.65 Type 2 diabetes mellitus with hyperglycemia; E11.22 Type 2 diabetes mellitus with diabetic chronic kidney disease; I12.9 Hypertensive chronic kidney disease with stage 1 through stage 4 chronic kidney disease, or unspecified chronic kidney disease; N18.9 Chronic kidney disease, unspecified; B96.20 Unspecified Escherichia coli [E. coli] as the cause of diseases classified elsewhere; B96.1 Klebsiella pneumoniae [K. pneumoniae] as the cause of diseases classified elsewhere; B95.2 Enterococcus as the cause of diseases classified elsewhere; B95.62 Methicillin resistant Staphylococcus aureus infection as the cause of diseases classified elsewhere
CPT/HCPCS: 0241U-QW; 36415; 36430; 49406; 71045-TC-FY; 71250-TC; 72141-TC; 72146-TC; 72148-TC; 74176-TC; 80048; 80053; 81003; 82010; 82550; 82803; 82962; 83036; 83540; 83550; 83605; 83735; 84484; 85025; 85610; 85730; 86140; 86803; 86850; 86900; 86901; 86922; 87040; 87070; 87075; 87086; 87102; 87116; 87186; 87205; 87206; 87210; 87389; 87635; 93005; 93010; 93306-TC; 97116-GP; 97161-GP; 99285-25; G0480; J0131; J0878; J1644; J1756; P9038; P9058

== ENCOUNTER 2024-03-02 11:43 | Inpatient (IN) | payer OTHER ==
[2024-03-02 12:01] VITALS: BMI 28.3
[2024-03-02] MEDS: SODIUM CHLORIDE 0.9% 500 ML INFUS.BAG IV ONE ×2 (12:37→14:10)
[2024-03-02 12:43] LABS: HEMATOCRIT 25.5 % (32.4-45.2); HEMOGLOBIN 8.3 GM/dL (10.7-15.3); MCH 27.7 pg (25.7-33.7); MCHC 32.4 g/dl (32.0-36.0); MEAN CELL VOLUME 85.4 fl (80-96); MEAN PLT VOLUME 8.3 fl (7.5-11.1); PLATELET COUNT 144 10^3/uL (134-434); RBC 2.99 M/mm3 (3.60-5.2); RDW 15.9 % (11.6-15.6); WHITE BLOOD COUNT 6.5 K/mm3 (4.0-10.0)
[2024-03-02 12:46] LABS: VENOUS PH 7.321 (7.310-7.410)
[2024-03-02 12:50] LABS: INR 1.95 (0.83-1.09); PROTHROMBIN TIME (PATIENT) 21.6 SEC (9.7-13.0)
[2024-03-02 12:52] LABS: ACTIVATED PTT 37.8 SECONDS (25.2-36.5)
[2024-03-02 13:00] LABS: POTASSIUM 3.9 mmol/L (3.5-5.1)
[2024-03-02 13:01] LABS: CALCIUM 9.1 mg/dL (8.5-10.1)
[2024-03-02 13:02] LABS: BLOOD UREA NITROGEN 42.7 mg/dL (7-18)
[2024-03-02 13:05] LABS: CREATININE 2.4 mg/dL (0.55-1.3)
[2024-03-02] MEDS ORDERED: VANCOMYCIN 1 GRAM (PRE-DOCKED) 1,000 MG/250 ML BAG IVPB ONE (13:06)
[2024-03-02 13:07] LABS: ALBUMIN 1.7 g/dl (3.4-5.0); BILIRUBIN,TOTAL 0.4 mg/dL (0.2-1); TOT PROT 6.6 g/dl (6.4-8.2)
[2024-03-02] MEDS ORDERED: PIPERACILLIN/TAZOB 3.375 GM 3.375 GM/50 ML BAG IVPB ONE (13:07)
[2024-03-02 13:09] LABS: ANISOCYTOSIS 0; MACROCYTOSIS 0
[2024-03-02] MEDS: PIPERACILLIN/TAZOB 3.375 GM 3.375 GM in DEXTROSE 5%-WATER - 50 ML IVPB ONE (14:06)
[2024-03-02] MEDS: VANCOMYCIN 1,000 MG in DEXTROSE 5%-WATER - 250 ML IVPB ONE (14:15)
[2024-03-02] MEDS ORDERED: ACETAMINOPHEN INJECTION 100 ML ONE (15:43)
[2024-03-02] MEDS: ACETAMINOPHEN 1000 MG/100 ML BAG IVPB ONE (16:35)
[2024-03-02] MEDS ORDERED: ACETAMINOPHEN 325 MG TABLET (FP) PO PRN (17:52)
[2024-03-02] MEDS ORDERED: NOREPINEPHRINE 0.9 % NACL 8 MG/250 ML BAG IVPB ONE (18:46)
[2024-03-02] MEDS: NOREPINEPHRINE 0.9 % NACL 8 MG/250 ML BAG IVPB SCH (18:55)
[2024-03-02] MEDS: VASopressin 40 UNITS/100 ML BAG IV SCH (20:06)
[2024-03-02] MEDS: LACTATED RINGERS SOLUTION 1000 ML INFUS.BAG IV ONE (20:13)
[2024-03-02] MEDS: SODIUM CHLORIDE 1,000 ML IV STA (20:13)
[2024-03-02] MEDS ORDERED: GABAPENTIN 300 MG CAPSULE PO SCH (22:00)
[2024-03-02] MEDS: HEPARIN NA (PORCINE) 5,000 UNITS/ML 1ML VIAL SQ SCH (22:33)
[2024-03-02] MEDS: CHLORHEXIDINE GLUCONATE 4% CLEANSER FOR DECOLONIZATION TP SCH (22:34)
[2024-03-02] MEDS: MUPIROCIN 2% TOPICAL OINTMENT FOR DECOLONIZATION NS SCH (22:34)
[2024-03-02] MEDS: INSULIN ASPART SLIDING SCALE (NOVOLOG) 1 VIAL SQ SCH (22:38)
[2024-03-02] MEDS: ASCORBIC ACID 500 MG TABLET (FP) PO SCH (22:38)
[2024-03-02] MEDS: PIPERACILLIN/TAZOB 4.5 GM 4.5 GM in DEXTROSE 5%-WATER 100 ML IVPB SCH (23:07)
[2024-03-03] MEDS: LEVOTHYROXINE NA 25 MCG TABLET (FP) PO SCH (06:06)
[2024-03-03] MEDS: LACTATED RINGERS SOLUTION 1,000 ML/1,000 ML INFUS.BAG IV STA (06:45)
[2024-03-03] MEDS: HYDROCORTISONE SOD SUCCINATE 100 MG/2 ML VIAL IVPB SCH ×2 (06:45→18:04)
[2024-03-03 06:59] LABS: HEMOGLOBIN 7.9 GM/dL (10.7-15.3); MCH 27.5 pg (25.7-33.7); MCHC 31.7 g/dl (32.0-36.0); MEAN CELL VOLUME 86.9 fl (80-96); PLATELET COUNT 100 10^3/uL (134-434); RBC 2.88 M/mm3 (3.60-5.2); RDW 16.4 % (11.6-15.6)
[2024-03-03 07:14] LABS: POTASSIUM 3.8 mmol/L (3.5-5.1)
[2024-03-03 07:16] LABS: ALBUMIN 1.5 g/dl (3.4-5.0); CALCIUM 8.6 mg/dL (8.5-10.1); MAGNESIUM 1.2 mg/dL (1.8-2.4)
[2024-03-03 07:17] LABS: BLOOD UREA NITROGEN 41.4 mg/dL (7-18)
[2024-03-03 07:19] LABS: CREATININE 2.3 mg/dL (0.55-1.3)
[2024-03-03 07:20] LABS: PHOSPHOROUS 3.1 mg/dL (2.5-4.9)
[2024-03-03 07:22] LABS: BILIRUBIN,TOTAL 0.7 mg/dL (0.2-1); TOT PROT 6.1 g/dl (6.4-8.2)
[2024-03-03 07:34] LABS: WHITE BLOOD COUNT 33.2 K/mm3 (4.0-10.0)
[2024-03-03 08:27] LABS: EPI CELLS 11 /uL (0-25.1); HYALINE CASTS 3 /uL (0-3.1); URINE APPEARANCE CLOUDY; URINE BACTERIA 66 /uL (0-1359); URINE BILIRUBIN NEGATIVE (NEGATIVE); URINE COLOR YELLOW; URINE GLUCOSE (UA) 3+ (NEGATIVE); URINE KETONE NEGATIVE (NEGATIVE); URINE LEUK ESTERASE 2+ (NEGATIVE); URINE NITRITE NEGATIVE (NEGATIVE); URINE PROTEIN 1+ (NEGATIVE); URINE UROBILINOGEN 0.2 mg/dL (0.2-1.0); URINE WBC 1306 /uL (0-25.8)
[2024-03-03 09:03] LABS: ANISOCYTOSIS 2+; MACROCYTOSIS 0
[2024-03-03 09:44] LABS: URINE RBC 220.8 /uL (0-23.9); YEAST NEGATIVE (NEGATIVE)
[2024-03-03] MEDS: PANTOPRAZOLE SODIUM 40 MG VIAL IVPUSH SCH (10:12)
[2024-03-03] MEDS: AMINO ACIDS/PROTEIN HYDROLYS 30 ML LIQUID.PKT PO SCH (10:12)
[2024-03-03] MEDS: MAGNESIUM SULF 50% (8.12 MEQ/2 ML-1 GM VIAL) IVPB ONE (10:13)
[2024-03-03] MEDS ORDERED: VANCOMYCIN 1,000 MG in DEXTROSE 5%-WATER - 250 ML IVPB SCH (10:15)
[2024-03-03] MEDS: SODIUM CHLORIDE 0.9% 500 ML INFUS.BAG IV ONE (11:27)
[2024-03-03] MEDS: VANCOMYCIN/WATER FOR INJ (PEG) 1,000 MG/200 ML BAG IVPB SCH (11:28)
[2024-03-03] MEDS: PIPERACILLIN/TAZOB 2.25 GM 3.375 GM in DEXTROSE 5%-WATER - 50 ML IVPB SCH (11:28)
[2024-03-03] MEDS ORDERED: PIPERACILLIN/TAZOB 2.25 GM 3.375 GM in DEXTROSE 5%-WATER - 50 ML IVPB SCH (15:00)
[2024-03-03] MEDS ORDERED: DAPTOMYCIN 600 MG in SODIUM CHLORIDE 50 ML IVPB SCH (16:00)
[2024-03-03] MEDS: PIPERACILLIN/TAZOB 2.25 GM 2.25 GM in DEXTROSE 5%-WATER - 50 ML IVPB SCH (16:38)
[2024-03-03] MEDS: INSULIN (LEVEMIR) 100 UNITS/ML UNITS SQ SCH (16:39)
[2024-03-03] MEDS: SODIUM CHLORIDE 1,000 ML IV SCH (16:40)
[2024-03-03] MEDS: DAPTOMYCIN 600 MG in SODIUM CHLORIDE 50 ML IVPB SCH (16:58)
[2024-03-03] MEDS ORDERED: INSULIN ASPART SLIDING SCALE (NOVOLOG) 1 VIAL SQ ONE (18:10)
[2024-03-04] MEDS: PIPERACILLIN/TAZOB 2.25 GM 2.25 GM in DEXTROSE 5%-WATER - 50 ML IVPB SCH (03:53)
[2024-03-04] MEDS: HYDROCORTISONE SOD SUCCINATE 100 MG/2 ML VIAL IVPB SCH ×2 (05:20→22:16)
[2024-03-04] MEDS: HEPARIN NA (PORCINE) 5,000 UNITS/ML 1ML VIAL SQ SCH (05:21)
[2024-03-04] MEDS: LEVOTHYROXINE NA 25 MCG TABLET (FP) PO SCH (06:06)
[2024-03-04] MEDS: INSULIN (LEVEMIR) 100 UNITS/ML UNITS SQ SCH ×2 (06:06→22:14)
[2024-03-04] MEDS: INSULIN ASPART SLIDING SCALE (NOVOLOG) 1 VIAL SQ SCH (06:58)
[2024-03-04] MEDS: AMINO ACIDS/PROTEIN HYDROLYS 30 ML LIQUID.PKT PO SCH (08:40)
[2024-03-04] MEDS ORDERED: MUPIROCIN 2% TOPICAL OINTMENT FOR DECOLONIZATION NS SCH (10:00)
[2024-03-04] MEDS: PANTOPRAZOLE SODIUM 40 MG VIAL IVPUSH SCH (10:24)
[2024-03-04] MEDS: ASCORBIC ACID 500 MG TABLET (FP) PO SCH (10:24)
[2024-03-04] MEDS: INSULIN (NOVOLOG) ASPART 100 UNITS/ML 10ML VIAL SQ SCH (11:59)
[2024-03-04] MEDS: MEROPENEM 500 MG in DEXTROSE 5%-WATER 100 ML IVPB SCH (12:55)
[2024-03-04 13:07] LABS: HEMATOCRIT 22.3 % (32.4-45.2); MCH 26.8 pg (25.7-33.7); MCHC 31.6 g/dl (32.0-36.0); MEAN CELL VOLUME 84.6 fl (80-96); PLATELET COUNT 55 10^3/uL (134-434); RBC 2.63 M/mm3 (3.60-5.2); WHITE BLOOD COUNT 19.9 K/mm3 (4.0-10.0)
[2024-03-04 13:48] LABS: POTASSIUM 3.6 mmol/L (3.5-5.1)
[2024-03-04 13:50] LABS: CALCIUM 9.4 mg/dL (8.5-10.1)
[2024-03-04 13:51] LABS: ALBUMIN 1.3 g/dl (3.4-5.0)
[2024-03-04 13:54] LABS: CREATININE 2.3 mg/dL (0.55-1.3); PHOSPHOROUS 2.6 mg/dL (2.5-4.9)
[2024-03-04 13:55] LABS: BILIRUBIN,TOTAL 0.4 mg/dL (0.2-1)
[2024-03-04 13:56] LABS: TOT PROT 5.2 g/dl (6.4-8.2)
[2024-03-04 17:43] LABS: BASO % 0.2 % (0-2.0); HEMATOCRIT 23.1 % (32.4-45.2); MCH 26.7 pg (25.7-33.7); MCHC 30.2 g/dl (32.0-36.0); MEAN CELL VOLUME 88.4 fl (80-96); MEAN PLT VOLUME 10.7 fl (7.5-11.1); MONO % 1.4 % (3.8-10.2); NEUT % 95.4 % (42.8-82.8); PLATELET COUNT 64 10^3/uL (134-434); RBC 2.61 M/mm3 (3.60-5.2); RDW 17.3 % (11.6-15.6); WHITE BLOOD COUNT 21.8 K/mm3 (4.0-10.0)
[2024-03-04 17:51] LABS: INR 1.85 (0.83-1.09); PROTHROMBIN TIME (PATIENT) 20.5 SEC (9.7-13.0)
[2024-03-04 17:54] LABS: ACTIVATED PTT 27.8 SECONDS (25.2-36.5)
[2024-03-04 18:18] LABS: ANISOCYTOSIS 2+; MACROCYTOSIS 2+; TARGET CELLS 1+
[2024-03-04] MEDS ORDERED: CHLORHEXIDINE GLUCONATE 4% CLEANSER FOR DECOLONIZATION TP SCH (22:00)
[2024-03-05] MEDS: FONDAPARINUX SODIUM 7.5 MG/0.6 ML SYRINGE SQ SCH (10:35)
[2024-03-05 12:37] LABS: HEMATOCRIT 24.5 % (32.4-45.2); HEMOGLOBIN 7.9 GM/dL (10.7-15.3); MCH 27.2 pg (25.7-33.7); MCHC 32.3 g/dl (32.0-36.0); MEAN CELL VOLUME 84.3 fl (80-96); MEAN PLT VOLUME 10.3 fl (7.5-11.1); PLATELET COUNT 47 10^3/uL (134-434); RBC 2.91 M/mm3 (3.60-5.2); RDW 16.3 % (11.6-15.6); WHITE BLOOD COUNT 18.3 K/mm3 (4.0-10.0)
[2024-03-05 12:53] LABS: POTASSIUM 3.6 mmol/L (3.5-5.1)
[2024-03-05 13:00] LABS: ALBUMIN 1.5 g/dl (3.4-5.0); BLOOD UREA NITROGEN 53.9 mg/dL (7-18); CALCIUM 9.7 mg/dL (8.5-10.1)
[2024-03-05 13:03] LABS: CREATININE 2.3 mg/dL (0.55-1.3)
[2024-03-05 13:05] LABS: BILIRUBIN,TOTAL 0.5 mg/dL (0.2-1); TOT PROT 5.8 g/dl (6.4-8.2)
[2024-03-05 13:09] LABS: ANISOCYTOSIS 0; MACROCYTOSIS 0
[2024-03-05] MEDS: DAPTOMYCIN 600 MG in SODIUM CHLORIDE 50 ML IVPB SCH (16:55)
[2024-03-06] MEDS ORDERED: HYDROCORTISONE SOD SUCCINATE 100 MG/2 ML VIAL IVPB SCH (08:09)
[2024-03-06] MEDS: HYDROCORTISONE SOD SUCCINATE 100 MG/2 ML VIAL IVPUSH SCH (09:11)
[2024-03-06] MEDS: VITAMIN B COMP W-C 1 EA TABLET (NEPHRO-VITE) PO SCH (09:11)
[2024-03-06] MEDS: PANTOPRAZOLE SOD 40 MG SUSPENSION PACKET PO SCH (09:12)
[2024-03-06 09:51] LABS: HEMATOCRIT 25.9 % (32.4-45.2); HEMOGLOBIN 7.9 GM/dL (10.7-15.3); MCH 26.3 pg (25.7-33.7); MCHC 30.4 g/dl (32.0-36.0); MEAN CELL VOLUME 86.6 fl (80-96); MEAN PLT VOLUME 10.8 fl (7.5-11.1); PLATELET COUNT 60 10^3/uL (134-434); RBC 2.99 M/mm3 (3.60-5.2); RDW 17.2 % (11.6-15.6); WHITE BLOOD COUNT 21.6 K/mm3 (4.0-10.0)
[2024-03-06 09:57] LABS: POTASSIUM 3.6 mmol/L (3.5-5.1)
[2024-03-06 10:00] LABS: CALCIUM 9.7 mg/dL (8.5-10.1)
[2024-03-06 10:01] LABS: ALBUMIN 1.5 g/dl (3.4-5.0); BLOOD UREA NITROGEN 63.5 mg/dL (7-18)
[2024-03-06 10:04] LABS: CREATININE 2.2 mg/dL (0.55-1.3)
[2024-03-06 10:06] LABS: BILIRUBIN,TOTAL 0.7 mg/dL (0.2-1); TOT PROT 5.7 g/dl (6.4-8.2)
[2024-03-06 10:18] LABS: ANISOCYTOSIS 0; MACROCYTOSIS 0
[2024-03-06] MEDS: BISACODYL 10 MG SUPP.RECT PR ONE (12:02)
[2024-03-06] MEDS ORDERED: SODIUM CHLORIDE 1,000 ML IV SCH (17:15)
[2024-03-06] MEDS: LACTATED RINGERS SOLUTION 1,000 ML/1,000 ML INFUS.BAG IV SCH (21:18)
[2024-03-06] MEDS: SENNOSIDES 8.8 MG/5 ML SYRUP PO SCH (21:20)
[2024-03-07] MEDS: POLYETHYLENE GLYCOL (HEALTHYLAX) 3350 17 GM PACKET PO SCH (10:19)
[2024-03-07 10:55] LABS: HEMATOCRIT 27.2 % (32.4-45.2); MCH 27.5 pg (25.7-33.7); MCHC 33.1 g/dl (32.0-36.0); MEAN PLT VOLUME 10.2 fl (7.5-11.1); PLATELET COUNT 121 10^3/uL (134-434); RBC 3.27 M/mm3 (3.60-5.2); RDW 16.8 % (11.6-15.6); WHITE BLOOD COUNT 24.4 K/mm3 (4.0-10.0)
[2024-03-07 11:25] LABS: ALBUMIN 1.8 g/dl (3.4-5.0); CALCIUM 10.1 mg/dL (8.5-10.1)
[2024-03-07 11:27] LABS: BLOOD UREA NITROGEN 65.9 mg/dL (7-18)
[2024-03-07 11:30] LABS: BILIRUBIN,TOTAL 0.5 mg/dL (0.2-1); TOT PROT 6.6 g/dl (6.4-8.2)
[2024-03-07] MEDS: LACTATED RINGERS SOLUTION 1000 ML INFUS.BAG IV PRN (13:25)
[2024-03-07 13:59] LABS: ANISOCYTOSIS 0; HELMET CELLS 0; HOWELL-JOLLY BODIES 0; MACROCYTOSIS 0; OVALOCYTE 0; ROULEAU 0; SICKELED CELLS 0; TARGET CELLS 0; TEAR DROP CELLS 0; TOXIC GRANULATION 0
[2024-03-08] MEDS: ACETAMINOPHEN 325 MG TABLET (FP) PO PRN (10:56)
[2024-03-08 11:04] LABS: CALCIUM 9.8 mg/dL (8.5-10.1)
[2024-03-08 11:05] LABS: BLOOD UREA NITROGEN 61.6 mg/dL (7-18)
[2024-03-08 11:06] LABS: MCH 26.4 pg (25.7-33.7); MEAN CELL VOLUME 85.2 fl (80-96); MEAN PLT VOLUME 10.1 fl (7.5-11.1); PLATELET COUNT 102 10^3/uL (134-434); RBC 2.58 M/mm3 (3.60-5.2); RDW 16.6 % (11.6-15.6); WHITE BLOOD COUNT 18.7 K/mm3 (4.0-10.0)
[2024-03-08 11:10] LABS: HEMOGLOBIN 6.8 GM/dL (10.7-15.3)
[2024-03-08 12:22] LABS: ANISOCYTOSIS 0; MACROCYTOSIS 0; TARGET CELLS 1+
[2024-03-08 12:49] LABS: HEMATOCRIT 21.4 % (32.4-45.2); MCH 26.5 pg (25.7-33.7); MEAN CELL VOLUME 85.3 fl (80-96); MEAN PLT VOLUME 10.4 fl (7.5-11.1); PLATELET COUNT 111 10^3/uL (134-434); RBC 2.51 M/mm3 (3.60-5.2); RDW 16.9 % (11.6-15.6); WHITE BLOOD COUNT 20.2 K/mm3 (4.0-10.0)
[2024-03-08 12:56] LABS: HEMOGLOBIN 6.6 GM/dL (10.7-15.3)
[2024-03-08 16:06] LABS: HLA CLASS 1 ANTIBODY Positive (Negative)
[2024-03-09] MEDS: FONDAPARINUX SODIUM 2.5 MG/0.5 ML DISP.SYRIN SQ SCH (11:48)
[2024-03-09 12:59] LABS: HEMATOCRIT 25.9 % (32.4-45.2); HEMOGLOBIN 8.3 GM/dL (10.7-15.3); MCH 26.9 pg (25.7-33.7); MCHC 32.2 g/dl (32.0-36.0); MEAN CELL VOLUME 83.4 fl (80-96); MEAN PLT VOLUME 9.6 fl (7.5-11.1); PLATELET COUNT 148 10^3/uL (134-434); RDW 17.7 % (11.6-15.6)
[2024-03-09 13:26] LABS: POTASSIUM 4.7 mmol/L (3.5-5.1)
[2024-03-09 13:28] LABS: ALBUMIN 1.9 g/dl (3.4-5.0)
[2024-03-09 13:29] LABS: BLOOD UREA NITROGEN 65.6 mg/dL (7-18); MAGNESIUM 1.9 mg/dL (1.8-2.4)
[2024-03-09 13:30] LABS: CALCIUM 9.3 mg/dL (8.5-10.1)
[2024-03-09 13:32] LABS: PHOSPHOROUS 3.9 mg/dL (2.5-4.9)
[2024-03-09 13:34] LABS: BILIRUBIN,TOTAL 0.5 mg/dL (0.2-1); TOT PROT 6.4 g/dl (6.4-8.2)
[2024-03-09 17:48] LABS: HEMOGLOBIN 7.3 GM/dL (10.7-15.3); MCH 27.1 pg (25.7-33.7); MCHC 33.2 g/dl (32.0-36.0); MEAN CELL VOLUME 81.5 fl (80-96); MEAN PLT VOLUME 9.7 fl (7.5-11.1); PLATELET COUNT 153 10^3/uL (134-434); RDW 16.8 % (11.6-15.6); WHITE BLOOD COUNT 16.4 K/mm3 (4.0-10.0)
[2024-03-09] MEDS: INSULIN (LEVEMIR) 100 UNITS/ML UNITS SQ SCH (21:18)
[2024-03-10] MEDS: amLODIPine BESYLATE 10 MG TABLET (FP) PO SCH (09:27)
[2024-03-10 10:29] LABS: HEMATOCRIT 23.1 % (32.4-45.2); HEMOGLOBIN 7.4 GM/dL (10.7-15.3); MCH 26.9 pg (25.7-33.7); MCHC 32.1 g/dl (32.0-36.0); MEAN CELL VOLUME 83.7 fl (80-96); PLATELET COUNT 180 10^3/uL (134-434); RBC 2.76 M/mm3 (3.60-5.2); RDW 17.2 % (11.6-15.6); WHITE BLOOD COUNT 16.6 K/mm3 (4.0-10.0)
[2024-03-10 11:00] LABS: ANISOCYTOSIS 3+; MACROCYTOSIS 0; TARGET CELLS 1+
[2024-03-10 11:34] LABS: POTASSIUM 4.5 mmol/L (3.5-5.1)
[2024-03-10 11:40] LABS: ALBUMIN 1.8 g/dl (3.4-5.0); CALCIUM 9.5 mg/dL (8.5-10.1)
[2024-03-10 11:42] LABS: BLOOD UREA NITROGEN 60.2 mg/dL (7-18)
[2024-03-10 11:45] LABS: BILIRUBIN,TOTAL 0.6 mg/dL (0.2-1); CREATININE 1.9 mg/dL (0.55-1.3); TOT PROT 6.2 g/dl (6.4-8.2)
[2024-03-10] MEDS: DEXTROSE 50%-WATER 25 GM/50 ML DISP.SYRIN IVPUSH ONE (21:38)
[2024-03-11 09:40] LABS: BASO % 0.4 % (0-2.0); EOS % 0.1 % (0-4.5); HEMATOCRIT 19.8 % (32.4-45.2); LYMPH % 9.7 % (8-40); MCH 27.5 pg (25.7-33.7); MCHC 32.7 g/dl (32.0-36.0); MEAN CELL VOLUME 83.9 fl (80-96); MEAN PLT VOLUME 9.5 fl (7.5-11.1); MONO % 5.1 % (3.8-10.2); NEUT % 84.7 % (42.8-82.8); PLATELET COUNT 188 10^3/uL (134-434); RBC 2.37 M/mm3 (3.60-5.2); RDW 17.3 % (11.6-15.6); WHITE BLOOD COUNT 13.2 K/mm3 (4.0-10.0)
[2024-03-11 09:48] LABS: POTASSIUM 4.7 mmol/L (3.5-5.1)
[2024-03-11 09:56] LABS: ALBUMIN 1.8 g/dl (3.4-5.0); CALCIUM 9.4 mg/dL (8.5-10.1)
[2024-03-11 09:59] LABS: CREATININE 1.8 mg/dL (0.55-1.3); HEMOGLOBIN 6.5 GM/dL (10.7-15.3)
[2024-03-11 10:01] LABS: BILIRUBIN,TOTAL 0.7 mg/dL (0.2-1); TOT PROT 6.3 g/dl (6.4-8.2)
[2024-03-11 15:55] LABS: BASO % 0.8 % (0-2.0); EOS % 0.1 % (0-4.5); HEMATOCRIT 25.3 % (32.4-45.2); HEMOGLOBIN 8.1 GM/dL (10.7-15.3); LYMPH % 6.9 % (8-40); MCH 27.5 pg (25.7-33.7); MCHC 32.2 g/dl (32.0-36.0); MEAN CELL VOLUME 85.4 fl (80-96); MEAN PLT VOLUME 9.8 fl (7.5-11.1); MONO % 4.8 % (3.8-10.2); NEUT % 87.4 % (42.8-82.8); PLATELET COUNT 182 10^3/uL (134-434); RBC 2.96 M/mm3 (3.60-5.2); RDW 15.8 % (11.6-15.6); WHITE BLOOD COUNT 14.2 K/mm3 (4.0-10.0)
[2024-03-12 10:11] LABS: BASO % 0.8 % (0-2.0); EOS % 0.1 % (0-4.5); HEMOGLOBIN 8.3 GM/dL (10.7-15.3); LYMPH % 5.9 % (8-40); MCH 27.8 pg (25.7-33.7); MCHC 33.1 g/dl (32.0-36.0); MEAN CELL VOLUME 84.2 fl (80-96); MEAN PLT VOLUME 9.4 fl (7.5-11.1); MONO % 4.6 % (3.8-10.2); NEUT % 88.6 % (42.8-82.8); PLATELET COUNT 214 10^3/uL (134-434); RBC 2.97 M/mm3 (3.60-5.2); RDW 16.2 % (11.6-15.6)
[2024-03-12 10:57] LABS: POTASSIUM 4.4 mmol/L (3.5-5.1)
[2024-03-12 10:58] LABS: ALBUMIN 1.9 g/dl (3.4-5.0); BLOOD UREA NITROGEN 51.6 mg/dL (7-18); CALCIUM 9.8 mg/dL (8.5-10.1)
[2024-03-12 11:02] LABS: CREATININE 1.9 mg/dL (0.55-1.3)
[2024-03-12 11:03] LABS: BILIRUBIN,TOTAL 0.5 mg/dL (0.2-1); TOT PROT 6.4 g/dl (6.4-8.2)
[2024-03-12] MEDS: oxyCODONE HCL 5 MG TABLET PO PRN (11:49)
[2024-03-12] MEDS: DEXTROSE 5%-0.45% SALINE 1,000 ML IV SCH (18:53)
[2024-03-13 11:15] LABS: BASO % 1.1 % (0-2.0); EOS % 0.2 % (0-4.5); HEMATOCRIT 24.7 % (32.4-45.2); HEMOGLOBIN 7.8 GM/dL (10.7-15.3); LYMPH % 7.6 % (8-40); MCH 27.1 pg (25.7-33.7); MCHC 31.5 g/dl (32.0-36.0); MEAN CELL VOLUME 85.9 fl (80-96); MONO % 4.2 % (3.8-10.2); NEUT % 86.9 % (42.8-82.8); PLATELET COUNT 241 10^3/uL (134-434); RBC 2.88 M/mm3 (3.60-5.2); RDW 17.2 % (11.6-15.6); WHITE BLOOD COUNT 18.1 K/mm3 (4.0-10.0)
[2024-03-13 12:31] LABS: POTASSIUM 4.6 mmol/L (3.5-5.1)
[2024-03-13 12:38] LABS: BLOOD UREA NITROGEN 49.8 mg/dL (7-18); CALCIUM 9.1 mg/dL (8.5-10.1)
[2024-03-13] MEDS: MEROPENEM 500 MG PUSH 500 MG/10 ML DISP.SYRIN IVPUSH SCH (23:00)
[2024-03-14] MEDS: DEXTROSE 50%-WATER 25 GM/50 ML DISP.SYRIN IVPUSH ONE (05:20)
[2024-03-14] MEDS ORDERED: DEXTROSE 50%-WATER 25 GM/50 ML DISP.SYRIN ONE (05:32)
[2024-03-14 12:18] LABS: BASO % 1.4 % (0-2.0); EOS % 0.4 % (0-4.5); HEMATOCRIT 22.7 % (32.4-45.2); HEMOGLOBIN 7.2 GM/dL (10.7-15.3); MCH 27.2 pg (25.7-33.7); MCHC 31.8 g/dl (32.0-36.0); MEAN CELL VOLUME 85.4 fl (80-96); MEAN PLT VOLUME 9.2 fl (7.5-11.1); NEUT % 84.2 % (42.8-82.8); PLATELET COUNT 250 10^3/uL (134-434); RBC 2.65 M/mm3 (3.60-5.2); RDW 17.3 % (11.6-15.6)
[2024-03-14 12:25] LABS: INR 1.31 (0.83-1.09)
[2024-03-14 12:28] LABS: ACTIVATED PTT 31.7 SECONDS (25.2-36.5)
[2024-03-14] MEDS: ACETAMINOPHEN 325 MG TABLET (FP) PO SCH (12:35)
[2024-03-14 12:37] LABS: POTASSIUM 5.3 mmol/L (3.5-5.1)
[2024-03-14 12:38] LABS: CALCIUM 9.6 mg/dL (8.5-10.1)
[2024-03-14 12:39] LABS: BLOOD UREA NITROGEN 48.4 mg/dL (7-18)
[2024-03-14 12:42] LABS: CREATININE 1.9 mg/dL (0.55-1.3)
[2024-03-14] MEDS: SODIUM ZIRCONIUM CYCLOSILICATE (LOKELMA) 5 GM PACKET PO SCH (18:32)
[2024-03-14] MEDS: oxyCODONE HCL 5 MG TABLET PO PRN (21:04)
[2024-03-15 09:52] LABS: BASO % 1.8 % (0-2.0); EOS % 0.6 % (0-4.5); HEMATOCRIT 23.8 % (32.4-45.2); HEMOGLOBIN 7.7 GM/dL (10.7-15.3); LYMPH % 8.6 % (8-40); MCH 27.5 pg (25.7-33.7); MCHC 32.1 g/dl (32.0-36.0); MEAN CELL VOLUME 85.4 fl (80-96); MEAN PLT VOLUME 9.1 fl (7.5-11.1); MONO % 3.2 % (3.8-10.2); NEUT % 85.8 % (42.8-82.8); PLATELET COUNT 276 10^3/uL (134-434); RBC 2.79 M/mm3 (3.60-5.2); RDW 16.9 % (11.6-15.6); WHITE BLOOD COUNT 12.9 K/mm3 (4.0-10.0)
[2024-03-15 10:21] LABS: BLOOD UREA NITROGEN 46.7 mg/dL (7-18); CALCIUM 9.6 mg/dL (8.5-10.1)
[2024-03-15 10:24] LABS: CREATININE 1.9 mg/dL (0.55-1.3)
[2024-03-15] MEDS: ERTAPENEM SODIUM 1 GM VIAL IM ONE (14:58)
[2024-03-16] MEDS: GLUCAGON 1 MG KIT IM ONE (17:04)
[2024-03-16] MEDS: ERTAPENEM SODIUM 1 GM VIAL IM ONE (17:41)
[2024-03-16] MEDS: INSULIN (LEVEMIR) 100 UNITS/ML UNITS SQ SCH (22:15)
[2024-03-17 10:44] LABS: HEMATOCRIT 23.8 % (32.4-45.2); HEMOGLOBIN 7.7 GM/dL (10.7-15.3); MCHC 32.4 g/dl (32.0-36.0); MEAN CELL VOLUME 86.5 fl (80-96); MEAN PLT VOLUME 8.9 fl (7.5-11.1); PLATELET COUNT 274 10^3/uL (134-434); RBC 2.76 M/mm3 (3.60-5.2); RDW 16.5 % (11.6-15.6); WHITE BLOOD COUNT 6.6 K/mm3 (4.0-10.0)
[2024-03-17 11:18] LABS: POTASSIUM 5.6 mmol/L (3.5-5.1)
[2024-03-17 11:19] LABS: CALCIUM 9.8 mg/dL (8.5-10.1)
[2024-03-17 11:22] LABS: BLOOD UREA NITROGEN 47.3 mg/dL (7-18)
[2024-03-17 11:23] LABS: PHOSPHOROUS 4.1 mg/dL (2.5-4.9)
[2024-03-17] MEDS: SODIUM ZIRCONIUM CYCLOSILICATE (LOKELMA) 5 GM PACKET PO SCH (15:54)
[2024-03-17] MEDS: SODIUM CHLORIDE 0.45% 1,000 ML IV SCH (15:56)
[2024-03-18 09:00] LABS: HEMATOCRIT 17.4 % (32.4-45.2); MCH 27.8 pg (25.7-33.7); MCHC 32.6 g/dl (32.0-36.0); MEAN CELL VOLUME 85.1 fl (80-96); MEAN PLT VOLUME 8.4 fl (7.5-11.1); PLATELET COUNT 231 10^3/uL (134-434); RBC 2.05 M/mm3 (3.60-5.2); RDW 16.6 % (11.6-15.6); WHITE BLOOD COUNT 4.9 K/mm3 (4.0-10.0)
[2024-03-18 09:13] LABS: HEMOGLOBIN 5.7 GM/dL (10.7-15.3)
[2024-03-18 09:24] LABS: POTASSIUM 4.7 mmol/L (3.5-5.1)
[2024-03-18 09:27] LABS: CALCIUM 9.2 mg/dL (8.5-10.1)
[2024-03-18 09:28] LABS: BLOOD UREA NITROGEN 40.6 mg/dL (7-18); MAGNESIUM 1.8 mg/dL (1.8-2.4)
[2024-03-18 09:31] LABS: CREATININE 1.8 mg/dL (0.55-1.3)
[2024-03-18 14:44] VITALS: RESP 18
[2024-03-18 21:22] LABS: HEMATOCRIT 28.3 % (32.4-45.2); HEMOGLOBIN 9.2 GM/dL (10.7-15.3); MCH 27.6 pg (25.7-33.7); MCHC 32.6 g/dl (32.0-36.0); MEAN CELL VOLUME 84.7 fl (80-96); MEAN PLT VOLUME 8.7 fl (7.5-11.1); PLATELET COUNT 251 10^3/uL (134-434); RBC 3.34 M/mm3 (3.60-5.2); RDW 16.2 % (11.6-15.6); WHITE BLOOD COUNT 7.6 K/mm3 (4.0-10.0)
[2024-03-19] MEDS ORDERED: DEXTROSE 50%-WATER 25 GM/50 ML DISP.SYRIN ONE (05:31)
[2024-03-19] MEDS: DEXTROSE 50%-WATER 25 GM/50 ML DISP.SYRIN IVPUSH ONE (05:39)
[2024-03-19] MEDS: INSULIN (LEVEMIR) 100 UNITS/ML UNITS SQ SCH (09:19)
[2024-03-19 10:04] LABS: HEMATOCRIT 31.5 % (32.4-45.2); HEMOGLOBIN 10.8 GM/dL (10.7-15.3); MCH 28.7 pg (25.7-33.7); MCHC 34.4 g/dl (32.0-36.0); MEAN CELL VOLUME 83.4 fl (80-96); MEAN PLT VOLUME 8.5 fl (7.5-11.1); PLATELET COUNT 283 10^3/uL (134-434); RBC 3.78 M/mm3 (3.60-5.2); RDW 16.5 % (11.6-15.6); WHITE BLOOD COUNT 6.8 K/mm3 (4.0-10.0)
[2024-03-19 10:30] LABS: POTASSIUM 4.8 mmol/L (3.5-5.1)
[2024-03-19 10:34] LABS: BLOOD UREA NITROGEN 42.4 mg/dL (7-18); MAGNESIUM 1.8 mg/dL (1.8-2.4)
[2024-03-19 10:35] LABS: CALCIUM 9.4 mg/dL (8.5-10.1); CREATININE 1.7 mg/dL (0.55-1.3)
[2024-03-19 10:37] LABS: PHOSPHOROUS 3.7 mg/dL (2.5-4.9)
[2024-03-19] MEDS: MEROPENEM-0.9% SODIUM CHLORIDE 500 MG/50 ML BAG IVPB SCH (10:43)
[2024-03-19 10:48] VITALS: BP 154/71; PULSE 93; TEMP 98.3
[2024-03-19] MEDS: INSULIN (NOVOLOG) ASPART 100 UNITS/ML 10ML VIAL SQ SCH (11:05)
[2024-03-19] MEDS ORDERED: INSULIN (LEVEMIR) 100 UNITS/ML UNITS SQ SCH (22:00)
== END 2024-03-19 12:25 | DRG 871 ==
LOC: JER 11:43 → JERBED 15:49 → J4S 20:19 → JICU 20:56 → J6S 03-03 23:24
PROVIDERS: ADMIT Internal Medicine Pulmonary Disease; ATTEND Internal Medicine
PROC: 30233N1 Transfusion of Nonautologous Red Blood Cells into Peripheral Vein, Percutaneous Approach (ICD-10-PCS; 2024-03-08)
PROC: 02HV33Z Insertion of Infusion Device into Superior Vena Cava, Percutaneous Approach (ICD-10-PCS; principal; 2024-03-17)
PROC: B548ZZA Ultrasonography of Superior Vena Cava, Guidance (ICD-10-PCS; 2024-03-17)
DX: A41.89 Other specified sepsis (principal); G93.41 Metabolic encephalopathy; L89.153 Pressure ulcer of sacral region, stage 3; R65.21 Severe sepsis with septic shock; N17.9 Acute kidney failure, unspecified; E87.0 Hyperosmolality and hypernatremia; N39.0 Urinary tract infection, site not specified; E78.5 Hyperlipidemia, unspecified; E03.9 Hypothyroidism, unspecified; F32.A Depression, unspecified; E87.5 Hyperkalemia; D63.8 Anemia in other chronic diseases classified elsewhere; H54.40 Blindness, one eye, unspecified eye; I12.9 Hypertensive chronic kidney disease with stage 1 through stage 4 chronic kidney disease, or unspecified chronic kidney disease; N18.32 Chronic kidney disease, stage 3b; E11.22 Type 2 diabetes mellitus with diabetic chronic kidney disease; E11.65 Type 2 diabetes mellitus with hyperglycemia; N28.1 Cyst of kidney, acquired; R33.9 Retention of urine, unspecified; R09.02 Hypoxemia; D69.6 Thrombocytopenia, unspecified; B96.1 Klebsiella pneumoniae [K. pneumoniae] as the cause of diseases classified elsewhere; B96.5 Pseudomonas (aeruginosa) (mallei) (pseudomallei) as the cause of diseases classified elsewhere; Z86.718 Personal history of other venous thrombosis and embolism
CPT/HCPCS: 0241U-QW; 36415; 36430; 36558; 36569; 70450-TC; 70486-TC; 71045-TC-FY; 71250-TC; 73060-TC-LT-FY; 73060-TC-RT-FY; 73700-TC-RT; 74018-TC-FY; 74176-TC; 74177-TC; 76775-TC; 76856-TC; 76882-TC-RT-FY; 80048; 80053; 81003; 82272; 82542; 82550; 82728; 82803; 82962; 83010; 83540; 83550; 83605; 83615; 83735; 84100; 84443; 84479; 84484; 85025; 85027; 85045; 85379; 85384; 85610; 85730; 86022; 86850; 86900; 86901; 86922; 87040; 87077; 87086; 87186; 93005; 93010; 99285-25; G0480; J0131; J0878; J1644; J3490; P9038; P9058

== ENCOUNTER 2024-04-13 23:06 | Inpatient (IN) | payer OTHER ==
[2024-04-13 23:11] VITALS: BMI 24.7
[2024-04-14 01:13] LABS: EPI CELLS >36 /uL (0-25.1); HYALINE CASTS 239 /uL (0-3.1); PH,URINE 5.5 (5.0-8.0); URINE APPEARANCE TURBID; URINE BACTERIA 1079 /uL (0-1359); URINE BILIRUBIN NEGATIVE (NEGATIVE); URINE COLOR YELLOW; URINE GLUCOSE (UA) 3+ (NEGATIVE); URINE KETONE NEGATIVE (NEGATIVE); URINE LEUK ESTERASE 3+ (NEGATIVE); URINE NITRITE NEGATIVE (NEGATIVE); URINE PROTEIN 2+ (NEGATIVE); URINE UROBILINOGEN 0.2 mg/dL (0.2-1.0); URINE WBC 33066 /uL (0-25.8)
[2024-04-14 01:14] LABS: BASO % 0.3 % (0-2.0); EOS % 0.6 % (0-4.5); HEMATOCRIT 35.3 % (32.4-45.2); HEMOGLOBIN 11.2 GM/dL (10.7-15.3); LYMPH % 15.2 % (8-40); MCH 28.4 pg (25.7-33.7); MCHC 31.8 g/dl (32.0-36.0); MEAN CELL VOLUME 89.2 fl (80-96); MEAN PLT VOLUME 9.6 fl (7.5-11.1); MONO % 4.7 % (3.8-10.2); NEUT % 79.2 % (42.8-82.8); PLATELET COUNT 168 10^3/uL (134-434); RBC 3.96 M/mm3 (3.60-5.2); RDW 16.9 % (11.6-15.6)
[2024-04-14 01:28] LABS: INR 1.23 (0.83-1.09); PROTHROMBIN TIME (PATIENT) 14.1 SEC (9.7-13.0)
[2024-04-14 01:30] LABS: ACTIVATED PTT 30.1 SECONDS (25.2-36.5)
[2024-04-14 01:46] LABS: URINE RBC 1687.9 /uL (0-23.9)
[2024-04-14 01:47] LABS: YEAST PRESENT (NEGATIVE)
[2024-04-14 01:59] LABS: CHLORIDE 114 mmol/L (98-107); POTASSIUM 5.2 mmol/L (3.5-5.1); SODIUM 144 mmol/L (136-145)
[2024-04-14 02:01] LABS: ANION GAP 8 mmol/L (4-13); CO2 23 mmol/L (21-32)
[2024-04-14 02:02] LABS: BLOOD UREA NITROGEN 77.2 mg/dL (7-18); MAGNESIUM 2.1 mg/dL (1.8-2.4)
[2024-04-14 02:05] LABS: CREATININE 2.8 mg/dL (0.55-1.3); SGOT/AST 70 U/L (15-37); SGPT/ALT 50 U/L (13-61)
[2024-04-14 02:06] LABS: BILIRUBIN,TOTAL 0.2 mg/dL (0.2-1); TOT PROT 7.4 g/dl (6.4-8.2)
[2024-04-14 02:07] LABS: ALK PHOS 120 U/L (45-117)
[2024-04-14 02:09] LABS: GLUCOSE,RANDOM 490 mg/dL (74-106)
[2024-04-14] MEDS ORDERED: CEFTRIAXONE 1 GM/50 ML BAG ONE (02:57)
[2024-04-14] MEDS: CEFTRIAXONE 1,000 MG in DEXTROSE 5%-WATER - 50 ML IVPB ONE (03:03)
[2024-04-14] MEDS: LACTATED RINGERS SOLUTION 1000 ML INFUS.BAG IV ONE (03:03)
[2024-04-14] MEDS ORDERED: MEROPENEM 500 MG VIAL (RESTRICTED TO ID) IVPB ONE (05:19)
[2024-04-14] MEDS: MEROPENEM-0.9% SODIUM CHLORIDE 1 GM/50 ML BAG IVPB SCH (05:25)
[2024-04-14] MEDS ORDERED: LINEZOLID 600 MG PREMIX BAG 600 MG/300 ML BAG IVPB ONE (05:30)
[2024-04-14] MEDS: LINEZOLID 600 MG PREMIX BAG 600 MG/300 ML BAG IVPB SCH (05:45)
[2024-04-14] MEDS: HEPARIN NA (PORCINE) 5,000 UNITS/ML 1ML VIAL SQ SCH (05:45)
[2024-04-14] MEDS ORDERED: LEVOTHYROXINE NA 25 MCG TABLET (FP) ONE (07:14)
[2024-04-14] MEDS ORDERED: INSULIN ASPART SLIDING SCALE (NOVOLOG) 1 VIAL SQ ONE (07:15)
[2024-04-14 07:41] LABS: CHLORIDE 110 mmol/L (98-107); POTASSIUM 5.1 mmol/L (3.5-5.1); SODIUM 140 mmol/L (136-145)
[2024-04-14 07:47] LABS: CALCIUM 9.9 mg/dL (8.5-10.1)
[2024-04-14] MEDS: LEVOTHYROXINE NA 25 MCG TABLET (FP) PO SCH (07:47)
[2024-04-14] MEDS: INSULIN ASPART SLIDING SCALE (NOVOLOG) 1 VIAL SQ SCH (07:47)
[2024-04-14 07:48] LABS: ANION GAP 5 mmol/L (4-13); BLOOD UREA NITROGEN 64.2 mg/dL (7-18); CO2 25 mmol/L (21-32)
[2024-04-14 07:50] LABS: SGPT/ALT 41 U/L (13-61)
[2024-04-14 07:52] LABS: ALK PHOS 109 U/L (45-117); BILIRUBIN,TOTAL 0.2 mg/dL (0.2-1); CREATININE 2.4 mg/dL (0.55-1.3); PHOSPHOROUS 3.8 mg/dL (2.5-4.9); SGOT/AST 49 U/L (15-37); TOT PROT 7.1 g/dl (6.4-8.2)
[2024-04-14 08:11] LABS: GLUCOSE,RANDOM 518 mg/dL (74-106)
[2024-04-14] MEDS: GABAPENTIN 250 MG/5 ML ORAL SOLUTION, 470 ML BOTTLE PO SCH (15:27)
[2024-04-14] MEDS: oxyCODONE HCL 5 MG TABLET PO PRN (15:31)
[2024-04-14 15:58] VITALS: RESP 18
[2024-04-14] MEDS ORDERED: MEROPENEM 500 MG in DEXTROSE 5%-WATER 100 ML IVPB SCH (22:00)
[2024-04-14] MEDS: INSULIN (LEVEMIR) 100 UNITS/ML UNITS SQ SCH (22:01)
[2024-04-14] MEDS: ATORVASTATIN CA 10 MG TABLET (FP) PO SCH (22:02)
[2024-04-14] MEDS: MEROPENEM-0.9% SODIUM CHLORIDE 500 MG/50 ML BAG IVPB SCH (22:02)
[2024-04-15] MEDS: PANTOPRAZOLE 20 MG TABLET PO SCH (09:18)
[2024-04-15] MEDS: amLODIPine BESYLATE 10 MG TABLET (FP) PO SCH (09:18)
[2024-04-15] MEDS: VITAMIN B COMP W-C 1 EA TABLET (NEPHRO-VITE) PO SCH (09:18)
[2024-04-15] MEDS: AMINO ACIDS/PROTEIN HYDROLYS 30 ML LIQUID.PKT PO SCH (09:18)
[2024-04-15] MEDS: VALSARTAN 40 MG TABLET PO SCH (09:19)
[2024-04-15] MEDS: SILVER SULFADIAZINE 1% TOP CREAM 400 GM JAR TP SCH (09:20)
[2024-04-15 09:32] LABS: BASO % 0.3 % (0-2.0); EOS % 1.6 % (0-4.5); HEMATOCRIT 32.5 % (32.4-45.2); HEMOGLOBIN 10.1 GM/dL (10.7-15.3); LYMPH % 21.1 % (8-40); MCH 27.5 pg (25.7-33.7); MCHC 31.2 g/dl (32.0-36.0); MEAN CELL VOLUME 88.3 fl (80-96); MONO % 5.4 % (3.8-10.2); NEUT % 71.6 % (42.8-82.8); PLATELET COUNT 184 10^3/uL (134-434); RBC 3.68 M/mm3 (3.60-5.2); RDW 16.1 % (11.6-15.6); WHITE BLOOD COUNT 11.3 K/mm3 (4.0-10.0)
[2024-04-15] MEDS ORDERED: LINEZOLID 600 MG PREMIX BAG 600 MG/300 ML BAG IVPB SCH (10:00)
[2024-04-15] MEDS ORDERED: MEROPENEM-0.9% SODIUM CHLORIDE 1 GM/50 ML BAG IVPB SCH (10:00)
[2024-04-15 10:24] LABS: BLOOD UREA NITROGEN 61.9 mg/dL (7-18); CALCIUM 10.5 mg/dL (8.5-10.1); CREATININE 2.2 mg/dL (0.55-1.3)
[2024-04-15] MEDS ORDERED: DEXTROSE 5%-WATER - 1,000 ML IV SCH (13:00)
[2024-04-15 22:00] VITALS: BP 111/62; PULSE 88; TEMP 97.3
== END 2024-04-16 03:00 | DRG 689 ==
LOC: JER 23:06 → JERBED 04-14 02:55 → OBSVTOIN 04-14 05:26 → J8W 04-14 08:17
PROVIDERS: ADMIT Internal Medicine; ATTEND Internal Medicine
DX: N39.0 Urinary tract infection, site not specified (principal); L89.153 Pressure ulcer of sacral region, stage 3; F32.A Depression, unspecified; E11.22 Type 2 diabetes mellitus with diabetic chronic kidney disease; I12.9 Hypertensive chronic kidney disease with stage 1 through stage 4 chronic kidney disease, or unspecified chronic kidney disease; N18.9 Chronic kidney disease, unspecified; N18.32 Chronic kidney disease, stage 3b; E03.9 Hypothyroidism, unspecified; E78.5 Hyperlipidemia, unspecified; E11.65 Type 2 diabetes mellitus with hyperglycemia; D64.9 Anemia, unspecified
CPT/HCPCS: 0241U-QW; 36415; 70450-TC; 71045-TC-FY; 72125-TC; 72170-TC-FY; 80048; 80053; 81003; 82436; 82550; 82570; 82962; 83735; 84100; 84133; 84300; 84484; 85025; 85610; 85730; 87086; 93005; 93010; 99285-25; G0378; J1644

== ENCOUNTER 2024-11-24 00:11 | Inpatient (IN) | payer OTHER ==
[2024-11-24 00:51] LABS: MCHC 30.1 g/dl (32.2-35.5); MEAN CELL VOLUME 90.6 fl (79.4-94.8); MEAN PLT VOLUME 10.4 fl (9.4-12.3); RDW 15.0 % (12.5-17.0)
[2024-11-24 00:58] LABS: BG HCT 28.0 % (32.4-45.2); VENOUS BASE EXCESS -7.9 mmol/L (-2-2); VENOUS O2 SATURATION 88.8 % (70-80); VENOUS PCO2 35.6 mmHg (38-52); VENOUS PH 7.312 (7.310-7.410)
[2024-11-24 01:00] LABS: INR 1.96 (0.83-1.09); PROTHROMBIN TIME (PATIENT) 21.4 SEC (9.7-13.0)
[2024-11-24 01:02] LABS: ACTIVATED PTT 28.5 SECONDS (25.2-36.5)
[2024-11-24] MEDS: ACETAMINOPHEN 1000 MG/100 ML BAG IVPB ONE (01:03)
[2024-11-24] MEDS ORDERED: ACETAMINOPHEN INJECTION 100 ML ONE (01:04)
[2024-11-24] MEDS ORDERED: PIPERACILLIN/TAZOB 3.375 GM 3.375 GM/50 ML BAG IVPB ONE (01:05)
[2024-11-24] MEDS: PIPERACILLIN/TAZOB 3.375 GM 3.375 GM in DEXTROSE 5%-WATER - 50 ML IVPB ONE (01:12)
[2024-11-24 01:36] LABS: LACTIC ACID 3.1 mmol/L (0.4-2.0)
[2024-11-24 02:19] LABS: CO2 17 mmol/L (21-32); GLUCOSE,RANDOM 332 mg/dL (74-106)
[2024-11-24 02:20] LABS: CREATININE 3.0 mg/dL (0.55-1.3); SGOT/AST 32 U/L (15-37); SGPT/ALT 13 U/L (13-61)
[2024-11-24 02:21] LABS: TOT PROT 8.0 g/dl (6.4-8.2)
[2024-11-24 02:22] LABS: ALK PHOS 66 U/L (45-117)
[2024-11-24 02:25] LABS: N-TERMINAL BNP 6992.3 pg/ml (5-450)
[2024-11-24] MEDS ORDERED: VANCOMYCIN 1 GM PREMIX (F) 1 GM/200 ML BAG ONE (02:40)
[2024-11-24 02:58] LABS: EPI CELLS >36 /uL (0-25.1); HYALINE CASTS 2 /uL (0-3.1); URINE APPEARANCE TURBID; URINE BACTERIA >9,000 /uL (0-1359); URINE BILIRUBIN NEGATIVE (NEGATIVE); URINE COLOR YELLOW; URINE GLUCOSE (UA) 3+ (NEGATIVE); URINE KETONE NEGATIVE (NEGATIVE); URINE LEUK ESTERASE 3+ (NEGATIVE); URINE NITRITE POSITIVE (NEGATIVE); URINE PROTEIN 2+ (NEGATIVE); URINE UROBILINOGEN 1.0 mg/dL (0.2-1.0); URINE WBC 4357 /uL (0-25.8)
[2024-11-24] MEDS: VANCOMYCIN 1,000 MG in DEXTROSE 5%-WATER - 250 ML IVPB ONE (02:59)
[2024-11-24] MEDS: LACTATED RINGERS SOLUTION 1000 ML INFUS.BAG IV ONE ×2 (03:04→04:10)
[2024-11-24] MEDS ORDERED: LACTATED RINGERS SOLUTION 1,000 ML/1,000 ML INFUS.BAG IV SCH (03:45)
[2024-11-24 04:09] LABS: CO2 18.0 mmol/L (21-32)
[2024-11-24 04:10] LABS: GLUCOSE,RANDOM 356.0 mg/dL (74-106)
[2024-11-24 04:13] LABS: CREATININE 2.9 mg/dL (0.55-1.3)
[2024-11-24] MEDS ORDERED: POLYETHYLENE GLYCOL (HEALTHYLAX) 3350 17 GM PACKET PO PRN (05:02)
[2024-11-24] MEDS: INSULIN ASPART SLIDING SCALE (NOVOLOG) 1 VIAL SQ SCH ×3 (05:18→21:34)
[2024-11-24] MEDS: HEPARIN NA (PORCINE) 5,000 UNITS/ML 1ML VIAL SQ SCH (05:48)
[2024-11-24] MEDS: NOREPINEPHRINE BITARTRATE IV SCH (05:49)
[2024-11-24] MEDS: SODIUM CHLORIDE IV SCH (05:49)
[2024-11-24] MEDS: PANTOPRAZOLE 20 MG TABLET PO SCH (06:43)
[2024-11-24] MEDS: LEVOTHYROXINE NA 25 MCG TABLET (FP) PO SCH (06:43)
[2024-11-24] MEDS: ALBUMIN HUMAN 5% 250 ML IV SOLUTION IV SCH (06:50)
[2024-11-24 08:07] LABS: URINE RBC 50.8 /uL (0-23.9); YEAST NONE SEEN (NEGATIVE)
[2024-11-24 08:56] LABS: ARTERIAL BLD GAS O2 SATURATION 98.9 % (95-98); ARTERIAL BLOOD GAS BASE EXCESS -7.3 mmol/L (-2-2); ARTERIAL BLOOD GAS PCO2 33.30 mmHg (35-45); ARTERIAL BLOOD GAS PO2 151.5 mmHg (80-100); BG HCT 21.0 % (32.4-45.2)
[2024-11-24] MEDS: LACTATED RINGERS SOLUTION 1,000 ML/1,000 ML INFUS.BAG IV SCH (09:02)
[2024-11-24 09:06] LABS: ALLENS TEST POSITIVE
[2024-11-24] MEDS: MUPIROCIN 2% TOPICAL OINTMENT FOR DECOLONIZATION NS SCH (09:58)
[2024-11-24] MEDS: MEROPENEM 1 GM in DEXTROSE 5%-WATER 100 ML IVPB SCH (09:58)
[2024-11-24] MEDS ORDERED: VANCOMYCIN HCL 125 MG CAPSULE (RESTRICTED TO ID ONLY) PO SCH (10:00)
[2024-11-24] MEDS: methylPREDNISolone NA SUCC 40 MG/1 ML VIAL IVPUSH SCH (11:31)
[2024-11-24] MEDS ORDERED: LIDOCAINE HCL 1%, 10 MG/ML (20ML VIAL) ONE (12:07)
[2024-11-24] MEDS: LIDOCAINE HCL 1%, 10 MG/ML (20ML VIAL) SQ ONE (12:48)
[2024-11-24] MEDS ORDERED: NOREPINEPHRINE BITARTRATE 4 MG/4 ML ML IV ONE (14:08)
[2024-11-24] MEDS ORDERED: NOREPINEPHRINE 0.9 % NACL 8 MG/250 ML BAG IVPB SCH (14:15)
[2024-11-24] MEDS: SODIUM CHLORIDE 1,000 ML IV STA (16:03)
[2024-11-24] MEDS: VANCOMYCIN/WATER 1250 MG 1,250 MG/250 ML BAG IVPB SCH (16:03)
[2024-11-24] MEDS: NOREPINEPHRINE BITARTRATE 4,000 MCG in DEXTROSE 5%-WATER - 496 ML IV SCH (16:57)
[2024-11-24 20:42] LABS: HCV DIAGNOSTIC IN-HOUSE W/RFLX NON-REACTIVE (NONREACTIVE); HIV INTERPRETATION NEGATIVE (NEGATIVE)
[2024-11-24] MEDS: CHLORHEXIDINE GLUCONATE 4% CLEANSER FOR DECOLONIZATION TP SCH (21:21)
[2024-11-24] MEDS: NYSTATIN 100,000 UNIT/GM TOPICAL CREAM 15 GM TUBE TP SCH (21:29)
[2024-11-24] MEDS: prednisoLONE ACETATE 1% OPHTH SUSP 5 ML BOTTLE OD SCH (21:30)
[2024-11-24] MEDS: PANTOPRAZOLE SODIUM 40 MG VIAL IVPUSH SCH (21:31)
[2024-11-24] MEDS: INSULIN GLARGINE (LANTUS) 100 UNITS/ML UNITS SQ SCH (21:32)
[2024-11-24 21:45] LABS: ABSOLUTE IMMATURE GRANULOCYTES 0.16 x10^3/uL (0.0-0.031); BASOPHILS # 0.03 x10^3/uL (0.01-0.08); EOSINOPHIL % 0.0 % (0.7-5.8); EOSINOPHILS # 0.00 x10^3/uL (0.04-0.36); MCHC 30.9 g/dl (32.2-35.5); MEAN CELL VOLUME 87.9 fl (79.4-94.8); MEAN PLT VOLUME 10.4 fl (9.4-12.3); MONOCYTE # 0.51 x10^3/uL (0.24-0.86); MONOCYTE % 2.7 % (4.7-12.5); RDW 15.2 % (12.5-17.0)
[2024-11-24] MEDS ORDERED: SENNOSIDES 8.8 MG/5 ML SYRUP PO SCH (22:00)
[2024-11-24 22:14] LABS: CO2 22.0 mmol/L (21-32); GLUCOSE,RANDOM 176.0 mg/dL (74-106)
[2024-11-24 22:17] LABS: CREATININE 2.2 mg/dL (0.55-1.3); SGOT/AST 35.0 U/L (15-37); SGPT/ALT 13.0 U/L (13-61)
[2024-11-24 22:19] LABS: TOT PROT 6.1 g/dl (6.4-8.2)
[2024-11-24 22:20] LABS: ALK PHOS 53.0 U/L (45-117)
[2024-11-25] MEDS ORDERED: NOREPINEPHRINE BITARTRATE 4 MG/4 ML ML IV ONE (03:26)
[2024-11-25] MEDS: LEVOTHYROXINE SODIUM 100 MCG 5 ML VIAL IVPUSH SCH (06:04)
[2024-11-25 06:42] LABS: MCHC 30.3 g/dl (32.2-35.5); MEAN CELL VOLUME 88.3 fl (79.4-94.8); MEAN PLT VOLUME 10.9 fl (9.4-12.3); RDW 14.6 % (12.5-17.0)
[2024-11-25 06:56] LABS: CO2 17.0 mmol/L (21-32); GLUCOSE,RANDOM 202.0 mg/dL (74-106)
[2024-11-25 06:59] LABS: CREATININE 2.0 mg/dL (0.55-1.3); SGPT/ALT 14.0 U/L (13-61)
[2024-11-25 07:00] LABS: SGOT/AST 35.0 U/L (15-37)
[2024-11-25 07:01] LABS: TOT PROT 6.1 g/dl (6.4-8.2)
[2024-11-25 07:02] LABS: ALK PHOS 52.0 U/L (45-117)
[2024-11-25 07:04] LABS: N-TERMINAL BNP 17601.5 pg/ml (5-450)
[2024-11-25] MEDS: SILVER SULFADIAZINE 1% TOP CREAM 50 GM JAR TP SCH (10:59)
[2024-11-25] MEDS ORDERED: LACTATED RINGERS SOLUTION 1,000 ML/1,000 ML INFUS.BAG IV SCH (11:00)
[2024-11-25] MEDS: PIPERACILLIN/TAZOB 2.25 GM 2.25 GM in DEXTROSE 5%-WATER - 50 ML IVPB SCH (14:54)
[2024-11-25] MEDS: LACTATED RINGERS SOLUTION 1,000 ML/1,000 ML INFUS.BAG IV SCH (18:52)
[2024-11-25] MEDS: MAGNESIUM SULFATE IN WATER 2 GM/50 ML IVPB IVPB ONE (18:52)
[2024-11-26] MEDS: VANCOMYCIN/WATER 1250 MG 1,250 MG/250 ML BAG IVPB SCH (03:28)
[2024-11-26] MEDS: MEROPENEM 1 GM in DEXTROSE 5%-WATER 100 ML IVPB SCH (03:29)
[2024-11-26 06:40] LABS: MCHC 32.0 g/dl (32.2-35.5); MEAN CELL VOLUME 85.6 fl (79.4-94.8); MEAN PLT VOLUME 10.7 fl (9.4-12.3); RDW 16.1 % (12.5-17.0)
[2024-11-26 06:52] LABS: CO2 20.0 mmol/L (21-32); GLUCOSE,RANDOM 179.0 mg/dL (74-106)
[2024-11-26 06:55] LABS: CREATININE 2.2 mg/dL (0.55-1.3); SGOT/AST 27.0 U/L (15-37); SGPT/ALT 12.0 U/L (13-61)
[2024-11-26 06:56] LABS: TOT PROT 5.6 g/dl (6.4-8.2)
[2024-11-26 06:58] LABS: ALK PHOS 46.0 U/L (45-117)
[2024-11-26] MEDS: ACETAMINOPHEN 1000 MG/100 ML BAG IVPB SCH (07:20)
[2024-11-26] MEDS: MIDODRINE HCL 5 MG TABLET PO SCH (14:04)
[2024-11-27 06:16] LABS: ABSOLUTE IMMATURE GRANULOCYTES 0.30 x10^3/uL (0.0-0.031); BASOPHILS # 0.02 x10^3/uL (0.01-0.08); EOSINOPHIL % 0.0 % (0.7-5.8); EOSINOPHILS # 0.00 x10^3/uL (0.04-0.36); MCHC 32.2 g/dl (32.2-35.5); MEAN CELL VOLUME 83.9 fl (79.4-94.8); MEAN PLT VOLUME 12.2 fl (9.4-12.3); MONOCYTE # 0.58 x10^3/uL (0.24-0.86); MONOCYTE % 4.6 % (4.7-12.5); RDW 15.8 % (12.5-17.0)
[2024-11-27 06:22] LABS: CO2 17.0 mmol/L (21-32); GLUCOSE,RANDOM 251.0 mg/dL (74-106)
[2024-11-27 06:25] LABS: CREATININE 2.1 mg/dL (0.55-1.3); SGOT/AST 17.0 U/L (15-37); SGPT/ALT 12.0 U/L (13-61)
[2024-11-27 06:27] LABS: TOT PROT 5.2 g/dl (6.4-8.2)
[2024-11-27 06:28] LABS: ALK PHOS 75.0 U/L (45-117)
[2024-11-27] MEDS: INSULIN ASPART SLIDING SCALE (NOVOLOG) 1 VIAL SQ SCH (11:39)
[2024-11-28 06:40] LABS: MCHC 31.6 g/dl (32.2-35.5); MEAN CELL VOLUME 84.3 fl (79.4-94.8); MEAN PLT VOLUME 12.0 fl (9.4-12.3); RDW 15.9 % (12.5-17.0)
[2024-11-28 07:10] LABS: CO2 17.0 mmol/L (21-32); GLUCOSE,RANDOM 217.0 mg/dL (74-106)
[2024-11-28 07:14] LABS: CREATININE 2.0 mg/dL (0.55-1.3); SGOT/AST 15.0 U/L (15-37); SGPT/ALT 11.0 U/L (13-61)
[2024-11-28 07:15] LABS: TOT PROT 5.1 g/dl (6.4-8.2)
[2024-11-28 07:17] LABS: ALK PHOS 56.0 U/L (45-117)
[2024-11-28 12:25] LABS: ARTERIAL BLD GAS O2 SATURATION 99.2 % (95-98); ARTERIAL BLOOD GAS BASE EXCESS -8.4 mmol/L (-2-2); ARTERIAL BLOOD GAS PCO2 30.30 mmHg (35-45); ARTERIAL BLOOD GAS PO2 187.7 mmHg (80-100); BG HCT 26.0 % (32.4-45.2); O2 CONTENT 1.25 % vol
[2024-11-29 07:26] LABS: MCHC 31.0 g/dl (32.2-35.5); MEAN CELL VOLUME 85.4 fl (79.4-94.8); MEAN PLT VOLUME 12.5 fl (9.4-12.3); RDW 16.1 % (12.5-17.0)
[2024-11-29 07:56] LABS: CO2 17.0 mmol/L (21-32); GLUCOSE,RANDOM 170.0 mg/dL (74-106)
[2024-11-29 07:59] LABS: CREATININE 1.9 mg/dL (0.55-1.3)
[2024-11-29 10:58] VITALS: BMI 27.6
[2024-11-29] MEDS: ACETAMINOPHEN 1000 MG/100 ML BAG IVPB STA (18:41)
[2024-11-30 06:39] LABS: RDW 16.5 % (12.5-17.0)
[2024-11-30 06:41] LABS: IMMATURE PLATELET FRACTION # 7.30 x10^3/uL; MCHC 31.7 g/dl (32.2-35.5); MEAN CELL VOLUME 86.0 fl (79.4-94.8); MEAN PLT VOLUME 13.1 fl (9.4-12.3)
[2024-11-30 07:25] LABS: CO2 18.0 mmol/L (21-32); GLUCOSE,RANDOM 255.0 mg/dL (74-106)
[2024-11-30 07:29] LABS: CREATININE 1.9 mg/dL (0.55-1.3)
[2024-12-01 06:44] LABS: MCHC 32.4 g/dl (32.2-35.5); MEAN CELL VOLUME 85.6 fl (79.4-94.8); MEAN PLT VOLUME 12.0 fl (9.4-12.3); RDW 15.6 % (12.5-17.0)
[2024-12-01] MEDS: PANTOPRAZOLE SODIUM 40 MG VIAL IVPUSH SCH (09:40)
[2024-12-01] MEDS: PANTOPRAZOLE SODIUM 80 MG in SODIUM CHLORIDE 100 ML IVPB SCH (13:19)
[2024-12-01 14:31] LABS: MCHC 32.4 g/dl (32.2-35.5); MEAN CELL VOLUME 86.4 fl (79.4-94.8); RDW 16.0 % (12.5-17.0)
[2024-12-01] MEDS: PANTOPRAZOLE SODIUM 160 MG in SODIUM CHLORIDE 290 ML IVPB SCH (14:45)
[2024-12-01 16:31] LABS: INR 1.4 (0.83-1.09); PROTHROMBIN TIME (PATIENT) 15.3 SEC (9.7-13.0)
[2024-12-01 18:24] LABS: IMMATURE PLATELET FRACTION # 9.00 x10^3/uL; MCHC 33.3 g/dl (32.2-35.5); MEAN CELL VOLUME 84.8 fl (79.4-94.8); MEAN PLT VOLUME 12.5 fl (9.4-12.3); RDW 16.5 % (12.5-17.0)
[2024-12-01] MEDS: LACTATED RINGERS SOLUTION 1,000 ML/1,000 ML INFUS.BAG IV SCH (22:37)
[2024-12-02] MEDS: INSULIN ASPART SLIDING SCALE (NOVOLOG) 1 VIAL SQ SCH (01:08)
[2024-12-02] MEDS: PIPERACILLIN/TAZOB 2.25 GM 2.25 GM in DEXTROSE 5%-WATER - 50 ML IVPB SCH (02:11)
[2024-12-02] MEDS: LEVOTHYROXINE SODIUM 100 MCG 5 ML VIAL IVPUSH SCH (06:12)
[2024-12-02 06:47] LABS: MCHC 32.4 g/dl (32.2-35.5); MEAN CELL VOLUME 86.8 fl (79.4-94.8); MEAN PLT VOLUME 12.0 fl (9.4-12.3); RDW 17.1 % (12.5-17.0)
[2024-12-02 07:28] LABS: GLUCOSE,RANDOM 90.0 mg/dL (74-106)
[2024-12-02 07:32] LABS: CREATININE 1.9 mg/dL (0.55-1.3); SGPT/ALT 13.0 U/L (13-61)
[2024-12-02 07:33] LABS: ALK PHOS 42.0 U/L (45-117); TOT PROT 5.2 g/dl (6.4-8.2)
[2024-12-02 08:07] LABS: CO2 20.0 mmol/L (21-32); SGOT/AST 25.0 U/L (15-37)
[2024-12-02] MEDS: methylPREDNISolone NA SUCC 40 MG/1 ML VIAL IVPUSH SCH (09:39)
[2024-12-02] MEDS: MIDODRINE HCL 5 MG TABLET PO SCH (09:40)
[2024-12-02] MEDS: prednisoLONE ACETATE 1% OPHTH SUSP 5 ML BOTTLE OD SCH (09:41)
[2024-12-02] MEDS: NYSTATIN 100,000 UNIT/GM TOPICAL CREAM 15 GM TUBE TP SCH (09:41)
[2024-12-02] MEDS: PANTOPRAZOLE SODIUM 160 MG in SODIUM CHLORIDE 290 ML IVPB SCH (11:17)
[2024-12-02] MEDS: DEXTROSE 5%-LACTATED RINGERS 1,000 ML IV SCH (13:00)
[2024-12-02] MEDS ORDERED: DEXTROSE 50%-WATER - 25 GM/50 ML VIAL IVPUSH PRN (14:18)
[2024-12-02] MEDS ORDERED: DEXTROSE 50%-WATER 25 GM/50 ML DISP.SYRIN ONE (14:56)
[2024-12-03] MEDS: INSULIN GLARGINE (LANTUS) 100 UNITS/ML UNITS SQ SCH (00:07)
[2024-12-03 07:39] LABS: IMMATURE PLATELET FRACTION # 7.80 x10^3/uL; MCHC 32.0 g/dl (32.2-35.5); MEAN CELL VOLUME 87.5 fl (79.4-94.8); RDW 17.7 % (12.5-17.0)
[2024-12-03 07:43] LABS: CO2 20.0 mmol/L (21-32); GLUCOSE,RANDOM 199.0 mg/dL (74-106)
[2024-12-03 07:46] LABS: CREATININE 1.9 mg/dL (0.55-1.3)
[2024-12-04 13:57] LABS: MCHC 32.5 g/dl (32.2-35.5); MEAN CELL VOLUME 87.7 fl (79.4-94.8); RDW 18.4 % (12.5-17.0)
[2024-12-04 13:59] LABS: ABSOLUTE IMMATURE GRANULOCYTES 0.74 x10^3/uL (0.0-0.031); BASOPHILS # 0.06 x10^3/uL (0.01-0.08); EOSINOPHIL % 0.1 % (0.7-5.8); EOSINOPHILS # 0.02 x10^3/uL (0.04-0.36); IMMATURE PLATELET FRACTION # 8.80 x10^3/uL; MONOCYTE # 0.41 x10^3/uL (0.24-0.86); MONOCYTE % 2.0 % (4.7-12.5)
[2024-12-04 14:03] LABS: INR 1.45 (0.83-1.09); PROTHROMBIN TIME (PATIENT) 15.9 SEC (9.7-13.0)
[2024-12-04 14:58] LABS: CO2 18.0 mmol/L (21-32); GLUCOSE,RANDOM 217.0 mg/dL (74-106)
[2024-12-04 15:01] LABS: CREATININE 1.9 mg/dL (0.55-1.3); SGOT/AST 30.0 U/L (15-37); SGPT/ALT 14.0 U/L (13-61)
[2024-12-04 15:31] LABS: ALK PHOS 49.0 U/L (45-117); TOT PROT 5.6 g/dl (6.4-8.2)
[2024-12-04] MEDS: PANTOPRAZOLE SODIUM 40 MG VIAL IVPUSH SCH (21:35)
[2024-12-05] MEDS ORDERED: MIDODRINE HCL 5 MG TABLET NGT SCH (10:15)
[2024-12-05] MEDS: MIDODRINE HCL 5 MG TABLET NGT SCH (10:27)
[2024-12-05] MEDS ORDERED: DEXTROSE 50%-WATER 25 GM/50 ML DISP.SYRIN IVPUSH PRN (23:43)
[2024-12-06 08:38] LABS: MEAN CELL VOLUME 90.3 fl (79.4-94.8)
[2024-12-06 08:40] LABS: IMMATURE PLATELET FRACTION # 9.30 x10^3/uL; MCHC 32.3 g/dl (32.2-35.5); RDW 20.2 % (12.5-17.0)
[2024-12-06 09:24] LABS: GLUCOSE,RANDOM 108.0 mg/dL (74-106)
[2024-12-06 09:25] LABS: CO2 24.0 mmol/L (21-32)
[2024-12-06 09:27] LABS: CREATININE 1.9 mg/dL (0.55-1.3); SGOT/AST 37.0 U/L (15-37); SGPT/ALT 13.0 U/L (13-61)
[2024-12-06 09:29] LABS: TOT PROT 5.6 g/dl (6.4-8.2)
[2024-12-06 09:30] LABS: ALK PHOS 61.0 U/L (45-117)
[2024-12-06] MEDS: SODIUM CHLORIDE IVPB SCH (12:10)
[2024-12-06] MEDS: DAPTOMYCIN IVPB SCH (12:10)
[2024-12-06 21:53] LABS: EOSINOPHIL % 0.0 % (0.7-5.8); MEAN CELL VOLUME 89.9 fl (79.4-94.8)
[2024-12-06 21:55] LABS: ABSOLUTE IMMATURE GRANULOCYTES 0.47 x10^3/uL (0.0-0.031); BASOPHILS # 0.05 x10^3/uL (0.01-0.08); EOSINOPHILS # 0.00 x10^3/uL (0.04-0.36); IMMATURE PLATELET FRACTION # 7.60 x10^3/uL; MCHC 32.2 g/dl (32.2-35.5); MONOCYTE # 0.79 x10^3/uL (0.24-0.86); MONOCYTE % 2.9 % (4.7-12.5); RDW 20.8 % (12.5-17.0)
[2024-12-06] MEDS: ACETAMINOPHEN 1000 MG/100 ML BAG IVPB ONE (22:26)
[2024-12-06] MEDS: FUROSEMIDE 40 MG/4 ML INJECTABLE VIAL IVPUSH ONE (22:26)
[2024-12-07] MEDS: SODIUM CHLORIDE 0.45% 1,000 ML IV SCH (00:48)
[2024-12-07 11:20] LABS: CO2 24.0 mmol/L (21-32)
[2024-12-07 11:21] LABS: GLUCOSE,RANDOM 206.0 mg/dL (74-106)
[2024-12-07 11:24] LABS: CREATININE 1.9 mg/dL (0.55-1.3)
[2024-12-07] MEDS: VANCOMYCIN 1,000 MG in DEXTROSE 5%-WATER - 250 ML IVPB ONE (15:22)
[2024-12-07] MEDS: VANCOMYCIN 500 MG in DEXTROSE 5%-WATER - 250 ML IVPB ONE (16:20)
[2024-12-07] MEDS ORDERED: INSULIN ASPART SLIDING SCALE (NOVOLOG) 1 VIAL SQ ONE (17:25)
[2024-12-07] MEDS: ACETAMINOPHEN 650 MG/20.3 ML ORAL SOLUTION (CUPS) PO ONE (23:47)
[2024-12-07] MEDS: FUROSEMIDE 40 MG/4 ML INJECTABLE VIAL IVPUSH ONE (23:48)
[2024-12-08 06:10] VITALS: RESP 20
[2024-12-08 07:50] LABS: IMMATURE PLATELET FRACTION # 8.70 x10^3/uL; MCHC 31.0 g/dl (32.2-35.5); MEAN CELL VOLUME 92.3 fl (79.4-94.8); RDW 22.2 % (12.5-17.0)
[2024-12-08 08:15] LABS: CO2 24.0 mmol/L (21-32)
[2024-12-08 08:16] LABS: GLUCOSE,RANDOM 178.0 mg/dL (74-106)
[2024-12-08 08:19] LABS: CREATININE 1.9 mg/dL (0.55-1.3); SGOT/AST 31.0 U/L (15-37); SGPT/ALT 13.0 U/L (13-61)
[2024-12-08 08:20] LABS: TOT PROT 5.7 g/dl (6.4-8.2)
[2024-12-08 08:28] LABS: ALK PHOS 102.0 U/L (45-117)
[2024-12-08] MEDS ORDERED: METOPROLOL TARTRATE 5 MG/5 ML VIAL IVPUSH PRN (15:48)
[2024-12-08] MEDS ORDERED: METOPROLOL TARTRATE 25 MG TABLET (FP) PO SCH (22:00)
[2024-12-08 22:16] VITALS: BP 148/80; PULSE 124; TEMP 98.1
== END 2024-12-08 21:14 | disposition expired | DRG 314 ==
LOC: JER 00:11 → JERBED 03:30 → OBSVTOIN 04:47 → JICU 06:29 → J2W 12-01 22:33 → J4S 12-03 13:24
PROVIDERS: ADMIT Internal Medicine; ATTEND Internal Medicine
PROC: 05HF33Z Insertion of Infusion Device into Left Cephalic Vein, Percutaneous Approach (ICD-10-PCS; 2024-11-24)
PROC: B51NZZA Fluoroscopy of Left Upper Extremity Veins, Guidance (ICD-10-PCS; 2024-11-24)
PROC: 03PYX3Z Removal of Infusion Device from Upper Artery, External Approach (ICD-10-PCS; 2024-11-24)
PROC: 30233N1 Transfusion of Nonautologous Red Blood Cells into Peripheral Vein, Percutaneous Approach (ICD-10-PCS; 2024-11-24)
PROC: 05HN33Z Insertion of Infusion Device into Left Internal Jugular Vein, Percutaneous Approach (ICD-10-PCS; principal; 2024-11-25)
PROC: B544ZZA Ultrasonography of Left Jugular Veins, Guidance (ICD-10-PCS; 2024-11-25)
PROC: 4A133B1 Monitoring of Arterial Pressure, Peripheral, Percutaneous Approach (ICD-10-PCS; 2024-11-26)
PROC: 4A133J1 Monitoring of Arterial Pulse, Peripheral, Percutaneous Approach (ICD-10-PCS; 2024-11-26)
DX: T80.211A Bloodstream infection due to central venous catheter, initial encounter (principal); A41.1 Sepsis due to other specified staphylococcus; L89.153 Pressure ulcer of sacral region, stage 3; G93.41 Metabolic encephalopathy; R65.21 Severe sepsis with septic shock; J18.9 Pneumonia, unspecified organism; J96.01 Acute respiratory failure with hypoxia; N17.9 Acute kidney failure, unspecified; N39.0 Urinary tract infection, site not specified; D62 Acute posthemorrhagic anemia; K92.2 Gastrointestinal hemorrhage, unspecified; B95.61 Methicillin susceptible Staphylococcus aureus infection as the cause of diseases classified elsewhere; B96.20 Unspecified Escherichia coli [E. coli] as the cause of diseases classified elsewhere; E78.5 Hyperlipidemia, unspecified; I12.9 Hypertensive chronic kidney disease with stage 1 through stage 4 chronic kidney disease, or unspecified chronic kidney disease; E11.22 Type 2 diabetes mellitus with diabetic chronic kidney disease; N18.9 Chronic kidney disease, unspecified; E11.51 Type 2 diabetes mellitus with diabetic peripheral angiopathy without gangrene; L89.621 Pressure ulcer of left heel, stage 1; L89.611 Pressure ulcer of right heel, stage 1; I83.029 Varicose veins of left lower extremity with ulcer of unspecified site; K59.00 Constipation, unspecified; E11.65 Type 2 diabetes mellitus with hyperglycemia; H54.61 Unqualified visual loss, right eye, normal vision left eye; E03.9 Hypothyroidism, unspecified; K21.9 Gastro-esophageal reflux disease without esophagitis; Z86.718 Personal history of other venous thrombosis and embolism
CPT/HCPCS: 36415; 36430; 36600; 70450-TC; 71045-TC-FY; 71250-TC; 74018-TC-FY; 74176-TC; 80048; 80053; 81003; 82010; 82272; 82550; 82803; 82962; 83605; 83735; 83880; 84100; 84443; 84484; 85025; 85027; 85610; 85730; 86803; 86850; 86900; 86901; 86922; 87040; 87070; 87086; 87324; 87389; 87449; 87481; 87637-QW; 87899; 93005; 93010; 93306-TC; 99291; G0378; G0480; J0878; P9038; P9058